=== PATIENT | female | born 1945 | race Caucasian/White ===

== ENCOUNTER 2019-08-29 20:24 | Inpatient (IN) | payer MEDICARE, SELFPAY ==
--- NOTE | ~2019-08-29 | XR_ITS ---
EXAMINATION: XR chest 1V portable DATE: 08/30/2019 09:25 INDICATION: Altered mental status. TECHNIQUE: A single frontal view of the chest was obtained. COMPARISON: Chest 2 views 06/14/2017 FINDINGS: The chest demonstrates clear lungs without pneumonia, pleural effusion, or pneumothorax. Th e heart size is normal. Skinfolds overlie the chest bilaterally. Surgical clips overlie the abdomen. There are changes of anterior and posterior fusion procedures in cervicothoracic spine. IMPRESSION: 1. No acute cardiopulmonary disease. Reviewed, dictated and finalized at location A.
--- NOTE | ~2019-08-29 | MR_ITS ---
EXAMINATION: MR brain/brain stem wo/w con DATE: 08/30/2019 14:02 INDICATION: Altered mental status. TECHNIQUE: Magnetic resonance imaging (MRI) of the brain and brainstem was performed without and with 7 mL MultiHance intravenous contrast. Sequences included sagittal and axial T1-weighted FSE, axial d iffusion-weighted FS EPI, axial T2*-weighted GRE, axial T2-weighted FLAIR Propeller, and axial T2-lynn ghted Propeller. Postcontrast sequences included axial and coronal T1-weighted FSE. Apparent diffusio n coefficient (ADC) maps were created. COMPARISON: Head CT 08/29/2019 FINDINGS: There are scattered areas of nonspecific increased T2-weighted signal intensity in the cere bral white matter and jesus. There is an old infarct involving the right basal ganglia and internal ca psule. There is a small old infarct in right cerebellum. There is no intracranial hemorrhage, acute i nfarction, or abnormal intracranial mass lesion. There is ex vacuo dilatation of body of right latera l ventricle. There are likely changes of ocular lens replacement surgeries. The paranasal sinuses are clear. The mastoid air cells are normal. IMPRESSION: 1. 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 2. Moderate nonspecific cerebral white matter disease and pontine disease, which likely represents ch ronic small vessel ischemic disease. Reviewed, dictated and finalized at location A. IMPRESSION: 1. 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 2. Moderate nonspecific cerebral white matter disease and pontine disease, whic h likely represents chronic small vessel ischemic disease.
--- NOTE | ~2019-08-29 | CT_ITS ---
EXAMINATION: CTA brain carotid DATE: 08/29/2019 23:07 INDICATION: Acute onset of confusion and altered mental status TECHNIQUE: Computed tomographic angiography (CTA) of the head was performed without and with 100 mL O mnipaque-350 intravenous contrast. CTA of the neck was performed with intravenous contrast. The dose- length product was 1641.08 mGy-cm. Maximum intensity projection and volume rendered 3D-reconstruction s were created by the technologist on a separate workstation. Automated exposure control and iterativ e reconstruction technique were employed. COMPARISON: None. FINDINGS: HEAD CTA: There is no acute intraparenchymal hemorrhage. No evidence of mass lesion. No evidence of a cute infarction. There are areas of prior lacunar infarction in the right caudate and internal capsul e and the right cerebellum. There is mild periventricular and subcortical hypodensity probably relate d to small vessel ischemic disease. There is mild prominence of the sulci and ventricles related to c erebral atrophy. Intracranial calcified cerebral atherosclerosis is noted. There are no extra-axial c ollections. There is no mass effect or midline shift. Changes in the globes are likely from ocular le ns surgery. The visualized sinuses and mastoid air cells are well aerated. There is no significant stenosis of the basilar artery or posterior cerebral arteries. There is no si gnificant stenosis of the intracranial internal carotid arteries or the anterior or middle cerebral a rteries. The anterior communicating artery and posterior communicating arteries are normal. There is no aneurysm. NECK CTA: The thyroid gland is unremarkable. The submandibular and parotid glands are symmetric. Ther e is no lymphadenopathy. There are no masses identified. The airway is unremarkable. There are change s of anterior and posterior fusion from C3 through T1. The superior mediastinum is unremarkable. Ther e is moderate emphysema of the visualized lung apices. There is 44% stenosis of the proximal right internal carotid artery relative to normal distal artery lumen diameter (NASCET criteria). There is 11% stenosis of the proximal left internal carotid artery relative to normal distal artery lumen diameter. IMPRESSION: 1. Areas of prior infarction without acute intracranial abnormality. Normal head CTA. 2. 44% stenosis of the proximal right internal carotid artery relative to normal distal artery lumen diameter (NASCET criteria). 3. 11% stenosis of the proximal left internal carotid artery relative to normal distal artery lumen d iameter. 4. Moderate emphysema. Reviewed, dictated and finalized at location A. IMPRESSION: 1. Areas of prior infarction without acute intracranial abnormality. Normal hea d CTA. 2. 44% stenosis of the proximal right internal carotid artery relative to viral l distal artery lumen diameter (NASCET criteria). 3. 11% stenosis of the proximal left internal carotid artery relative to normal distal artery lumen diameter. 4. Moderate emphysema.
[2019-08-29 20:24] VITALS: BP 196/131; PULSE 109; RESP 18; TEMP 36.9; O2SAT 99
--- NOTE | 2019-08-29 20:28 | ECG_ITS ---
Measurements Intervals [place] Rate: 105 P: 81 CT: 140 QRS: 64 QRSD: 78 T: 75 QT: 330 QTc: 437 Interpretive Statements SINUS TACHYCARDIA RIGHT ATRIAL ENLARGEMENT POSSIBLE LEFT ATRIAL ENLARGEMENT BORDERLINE R WAVE PROGRESSION, ANTERIOR LEADS MINIMAL Q WAVES- INFERIOR LEADS BASELINE ARTIFACT- II, III, AVR, AVL, AVF, V4-V6 ABNORMAL ECG Electronically Signed On 08-30-2019 7:34:15 CDT by Cheng Nazario D.O.
--- NOTE | 2019-08-29 20:34 | ED.GENADULT ---
HPI - General Adult General Chief complaint: Altered Mental Status Stated complaint: ams Time Seen by Provider: 08/29/19 20:25 History of Present Illness HPI narrative: Patient is 74 y/o brought in by EMS for altered mental status. states that she started to talk confused starting 2 hours ago. She keeps repeating the same thing again and again. He states that one time he asked her what she would like for dinner and she asked him why he wanted her to lay down. There is no alleviating or exacerbating factor. She is able to move all 4 extremities. She is on Oxycodone for chronic back pain. states that she gets agitated when she runs out of Oxycodone. Related Data Home Medications Medication Instructions Recorded Confirmed amitriptyline 50 mg PO HS 08/29/19 08/30/19 furosemide 40 mg PO DAILY 08/29/19 08/30/19 oxycodone [OxyContin] 40 mg PO HS 08/29/19 08/30/19 oxycodone [OxyContin] 80 mg PO TID PRN 08/29/19 08/30/19 potassium chloride 10 meq PO DAILY 08/29/19 08/30/19 fluticasone furoate-vilanterol 1 inh INHALATION DAILY 08/30/19 08/30/19 [Breo Ellipta] lisinopril 40 mg PO DAILY 08/30/19 08/30/19 trazodone 50 mg PO HS 08/30/19 08/30/19 Allergies Allergy/AdvReac Type Severity Reaction Status Date / Time codeine Allergy Intermediate Rash Verified 08/29/19 22:13 CODEINE (Generic Allergy) Allergy Unknown Y Uncoded 01/07/17 00:00 CODIENE Allergy Unknown Rash Uncoded 08/29/19 22:13 NKFA Allergy Unknown Rash Uncoded 08/29/19 22:13 Review of Systems Review of Systems: ROS unobtainable: Yes unobtainable due to mental status PMFSH Past Medical History Medical History (Updated 09/01/19 @ 08:56 by Nella Hightower MD) Arthritis Chronic narcotic use COPD (chronic obstructive pulmonary disease) Diverticulosis Essential hypertension, benign History of peptic ulcer Tobacco abuse Surgical History Surgical History (Updated 08/30/19 @ 08:25 by Fabian Sun MD) Hx of dilation and curettage 2002 Hx of spinal surgery 2 cervical (front) and 1 cervical posterior 2 lumbar surgeries S/P appy 1956 S/P cholecystectomy 1971 Family History Family History (Updated 08/30/19 @ 06:48 by Fabian Sun MD) Other Lung cancer Social History Social History (Updated 08/30/19 @ 08:24 by Fabian Sun MD) Social History: Home with . Worked at [employer]. Hx of tobacco use. Full code. Smokes 3-4 cig/day. No alcohol. would be making medical decision for her if she is not able. Smoking packs per day: 0.25 Smoking cigarettes per day: 5.0 Years smoked: 10 Smoking pack-years: 2.50 Smoking status: Current every day smoker Tobacco type: cigarettes Alcohol intake: never Substance use: never Gender identity (if verbalized by the patient): Female Sexual Orientation (if Verbalized by the Patient): Straight or Heterosexual Spiritual care concerns: No Exam Const: General: no acute distress and well developed Orientation/consciousness: oriented to person HENMT: Head: normocephalic Ears: external ears normal General nose exam: Normal external nose present Eyes: General: appearance normal, both eyes and all related structures Conjunctivae: conjunctivae normal Neck: Neck: normal visual inspection and full ROM Chest: Chest palpation & inspection: normal inspection of the chest and no tenderness Resp: Effort & Inspection: normal respiratory effort Auscultation: clear to auscultation bilaterally Cardio: Rate: regular rate Rhythm: regular rhythm GI: GI Palp: No abdominal tenderness and Yes Soft to palpation Skin: General skin exam: normal color and turgor normal Neuro: General: oriented to person, moves all extremities, confusion and other (does not answer questions appropriately, has spontaneous movement all 4 ext) Cognition (Neuro): abnormal cognition Speech: normal speech Motor exam (neuro): 5/5 motor strength present throughout and Other motor obs
--- NOTE | 2019-08-29 20:45 | PC.NURSE ---
RN at bedside x 4 Pt is pulling all leads off, and ripping iv out. Pt given ativan 2mg per dr ireland verbal order. pt still restless. RN cath successful.
[2019-08-29 21:00] LABS: Basophils Absolute Auto 0.1 K/mm3 (0.0-0.1); Basophils Percent Auto 0.7 % (0.2-1.2); Eosinophils Percent Auto 0.2 % (0-4.4); Hematocrit 46.9 % (37.0-47.0); Immature Granulocyte Absolute 0.03 K/mm3 (0.00-0.031); Immature Granulocyte Percent A 0.3 % (0-0.5); Lymphocytes Absolute Auto 2.14 K/mm3 (0.9-3.2); Lymphocytes Percent Auto 21.8 % (18.3-44.2); Mean Corpuscular HGB Conc 34.1 g/dl (32-36); Mean Corpuscular Hemoglobin 32.9 pg (26-34); Mean Corpuscular Volume 96.3 fl (80-100); Mean Platelet Volume 9.5 fl (7.4-10.4); Monocytes Absolute Auto 0.8 K/mm3 (0.1-0.6); Monocytes Percent Auto 7.6 % (2.6-8.5); Neutrophils Absolute Auto 6.8 K/mm3 (1.3-6.7); Neutrophils Percent Auto 69.4 % (45.5-73.1); Platelet Count Result 383 k/mm3 (150-375); Red Blood Count 4.87 M/mm3 (4.2-5.4); Red Cell Distribution Width 13.1 % (11.5-14.5); White Blood Count 9.8 K/mm3 (4.5-10.0)
[2019-08-29 21:04] LABS: Add Urine Microscopic? YES; Appearance Urine Clear (Clear); Bacteria Urine Trace /hpf; Bilirubin Urine Negative (Negative); Blood Urine 2+ (Negative); Color Urine Yellow (Yellow); Glucose Urine UA Negative (Negative); Ketones Urine 1+ mg/dL (Negative); Leukocyte Esterase Ur Trace LEU/UL (Negative); Mucus Urine Rare /lpf; Nitrate Urine Negative (Negative); Protein Urine 2+ mg/dL (Negative); RBC Urine 51-75 /hpf (0-2); Specific Grav Ur 1.017 (1.001-1.035); Squamous Epithelial Cell Urine Few /hpf (Few); WBC Urine 0-3 /hpf
[2019-08-29 21:12] LABS: Alanine Aminotransferase 17 U/L (4-35); Albumin Level 4.8 g/dL (3.5-5.1); Alkaline Phosphatase 69 U/L (38-126); Aspartate Amino Transferase 28 U/L (14-36); Blood Urea Nitrogen 17 mg/dL (7-17); Carbon Dioxide 22 mmol/L (22-30); Chloride 105 mmol/L (98-107); Estimated Glomerular Filt Rate > 60; Glucose 117 mg/dL (65-105); Sodium 140 mmol/L (137-145)
[2019-08-29 22:03] VITALS: BP 236/199; PULSE 97; RESP 18; O2SAT 98
--- NOTE | 2019-08-29 22:17 | PC.NURSE ---
ERP Dr. Hightower notified that patient is extremely restless, pulling at leads, attempting to rip iv out, and roll out of bed. MD also aware of pt bp being elevated to 200's / 200's.
--- NOTE | 2019-08-29 22:20 | PC.NURSE ---
RN spoke with CT, CT still unable to get pt into ct at this time d/t pt restlessness.
[2019-08-29] MEDS: HALOPERIDOL LACTATE 5 MG/ML VIAL IM (22:23)
[2019-08-29] MEDS: LABETALOL HCL INJ 100 MG/20 ML VIAL 20 MG IV PUSH (22:23)
[2019-08-29 22:34] VITALS: BP 159/132; PULSE 67; RESP 26; O2SAT 98
--- NOTE | 2019-08-29 23:10 | PC.NURSE ---
RN updated son Ken. Please contact him with any factual information [phone]. Son stated step father aka spouse to pt has alzheimers/dementia and is not able to communicate everything we are telling him.
--- NOTE | 2019-08-29 23:11 | PC.NURSE ---
RN report given to Courtney.
[2019-08-29 23:48] VITALS: BP 140/66; PULSE 68; RESP 10; O2SAT 98
[2019-08-29 23:51] LABS: Barbiturate Screen Urine Negative (Negative); Benzodiazepines Screen Urine Negative (Negative)
[2019-08-29 23:57] LABS: Amphetamine Screen Urine Negative (Negative); Cannabinoid Screen Urine Negative (Negative); Cocaine Screen Urine Negative (Negative); Methadone Screen Urine Negative (Negative); Opiate Screen Urine Positive (Negative); Phencyclidine Screen Urine Negative (Negative)
[2019-08-30] VITALS (8 sets, daily range): BP systolic 119–193; BP diastolic 67–91; PULSE 81–112; RESP 14–20; TEMP 36.2–37.2; O2SAT 90–100; BMI 16.8
--- NOTE | 2019-08-30 | ECHO_ITS ---
Patient Info Name: Etienne Cabrera Age: 74 years : 1945 Gender: Female Ht: 58 in Wt: 77 lbs BSA: 1.19 m2 HR: 98 bpm BP: 182 / 93 mmHg Heart Rhythm: Sinus Rhythm Technical Quality: Fair Exam Date: 08/30/2019 4:04 PM Exam Location: [facility] Pulmonary Exam Room: [facility] Patient Status: Inpatient Admit Date: 08/30/2019 Staff Ordering Physician: Fabian Sun MD Quality Assurance Nurse: Ellen Pedraza RDCS Attending Provider: Fabian Sun MD Exam Type: CA echo doppler w bubble study Study Info Indications - tia cva Complete two-dimensional, color flow and Doppler transthoracic echocardiogram is performed with agitated saline. Contrast/Agitated Saline Amount: --- ml Existing IV Access: Yes Contrast/Ag. Saline: Agitated Saline Amount: --- ml Administered By: Shlomo Londono RN Summary 1. Left ventricular chamber dimension is normal. 2. Left ventricular systolic function is normal, estimated at >70%. 3. There is no increased left ventricular wall thickness. 4. The left ventricular diastolic function is grade I diastolic dysfunction. 5. Suspected patent foramen ovale visualized by agitated saline imaging. 6. There is mild tricuspid valve regurgitation. 7. Cannot rule out aortic valve vegetation visualized. 8. The aortic valve leaflets are thickened especially involving the left and non coronary cusps. 9. Consider ELAINA if clinically indicated. Recommendations * Consider ELAINA if clinically indicated. Left Ventricle Left ventricular chamber dimension is normal. Left ventricular systolic function is normal, estimated at >70%. There is no increased left ventricular wall thickness. The left ventricular diastolic function is grade I diastolic dysfunction. Right Ventricle Right ventricular chamber dimension is normal. Right ventricular systolic function is normal. Left Atria Left atrial chamber dimension is normal. Right Atria Right atrial chamber dimension is normal. Atrial Septum Suspected patent foramen ovale visualized by agitated saline imaging. Aortic Valve The aortic valve is trileaflet. There is mild aortic valve sclerosis. There is no aortic valve stenosis. Cannot rule out aortic valve vegetation visualized. The aortic valve leaflets are thickened especially involving the left and non coronary cusps. Pulmonic Valve The pulmonic valve is normal. There is no pulmonic valve stenosis. There is trace pulmonic regurgitation. Mitral Valve The mitral valve has thickened leaflets. There is no mitral valve stenosis. There is trace mitral valve regurgitation. Tricuspid Valve The tricuspid valve leaflets are normal. There is no significant tricuspid valve stenosis. There is mild tricuspid valve regurgitation. No pulmonary hypertension, estimated pulmonary arterial systolic pressure is 32 mmHg. Pericardium/Pleural The pericardium appears normal. Inferior Vena Cava Normal inferior vena cava with >50% collapse upon inspiration consistent with normal right atrial pressure, 10 mmHg. Aorta The aortic root size at the sinus of Valsalva is normal. Left Ventricular Outflow Tract Name Value Normal LVOT 2D
--- NOTE | 2019-08-30 06:42 | PM.IMHP ---
H&P: HPI History of Present Illness Chief complaint: altered mental status Narrative: Etienne Cabrera is a 74 year old female here for altered mental status. Symptoms began last evening. Patient was noted by her to be repeating the same thing over and over again. On my history taking today, patient answers questions by saying 'yes', 'no', or 'thank you' without clear distinction. as such history is unreliable. Discussed with . He states patient would say 'I don't know what you mean'. Similar event in June that lasted 3-4 hours but symptoms resolved. No hx of taking her medication inappropriately except she takes her OxyContin more than she should. She ran out of her OxyContin medication a few days ago. Because of the mental status change, EMS was called and brought ot the ER. In the ER, patient had BP as high as 236/199. She was treated with Labteolol, Haldol and Ativan. RN notes state patient extremely restless attempting to rip out IV and roll out of bed. Head/Neck CTA showing areas of prior infarcts but no acute findings. No ASA given. Patient admitted for further care. Per , patient without recent symptoms specifically no chest pain, SOB, urinary symptoms, n/v, rash. No COVID exposure. Chronic cough but no change. Review of Systems Review of Systems: ROS unobtainable: Yes unobtainable due to mental status PMFSH Past Medical History Medical History (Updated 08/31/19 @ 12:02 by Jimmie Lamb MD) Arthritis Chronic narcotic use COPD (chronic obstructive pulmonary disease) Diverticulosis Essential hypertension, benign History of peptic ulcer Tobacco abuse Surgical History Surgical History (Updated 08/30/19 @ 08:25 by Fabian Sun MD) Hx of dilation and curettage 2001 Hx of spinal surgery 2 cervical (front) and 1 cervical posterior 2 lumbar surgeries S/P appy 1955 S/P cholecystectomy 1970 Family History Family History (Updated 08/30/19 @ 06:48 by Fabian Sun MD) Other Lung cancer Social History Social History (Updated 08/30/19 @ 08:24 by Fabian Sun MD) Social History: Home with . Worked at [employer]. Hx of tobacco use. Full code. Smokes 3-4 cig/day. No alcohol. would be making medical decision for her if she is not able. Smoking packs per day: 0.25 Smoking cigarettes per day: 5.0 Years smoked: 10 Smoking pack-years: 2.50 Smoking status: Current every day smoker Tobacco type: cigarettes Alcohol intake: never Substance use: never Gender identity (if verbalized by the patient): Female Sexual Orientation (if Verbalized by the Patient): Straight or Heterosexual Spiritual care concerns: No Meds Home Medications and Allergies Home Medications Medication Instructions Recorded Confirmed Type amitriptyline 50 mg PO HS 08/29/19 08/30/19 History furosemide 40 mg PO DAILY 08/29/19 08/30/19 History oxycodone [OxyContin] 40 mg PO HS 08/29/19 08/30/19 History oxycodone [OxyContin] 80 mg PO TID PRN 08/29/19 08/30/19 History potassium chloride 10 meq PO DAILY 08/29/19 08/30/19 History fluticasone furoate-vilanterol 1 inh INHALATION DAILY 08/30/19 08/30/19 History [Breo Ellipta] lisinopril 40 mg PO DAILY 08/30/19 08/30/19 History trazodone 50 mg PO HS 08/30/19 08/30/19 History Allergies Allergy/AdvReac Type Severity Reaction Status Date / Time codeine Allergy Intermediate Rash Verified 08/29/19 22:13 CODEINE (Generic Allergy) Allergy Unknown Y Uncoded 01/07/17 00:00 CODIENE Allergy Unknown Rash Uncoded 08/29/19 22:13 NKFA Allergy Unknown Rash Uncoded 08/29/19 22:13 Vital Signs Vital Signs - 24 hr 08/29/19 20:24 08/29/19 22:03 08/29/19 22:34 Temperature 98.5 F Pulse Rate 109 H 97 67 Respiratory Rate 18 18 26 H Blood Pressure 196/131 H 236/199 H 159/132 H Pulse Oximetry 99 98 98 08/29/19 23:48 08/30/19 00:45 08/30/19 06:00 Temperature 97.1 F L 98.0 F Pulse Rate 68 81 86 Respiratory R
--- NOTE | 2019-08-30 08:29 | ADMGEN ---
This patient, Etienne Cabrera, was admitted to [facility] Surg Room 323-02. Patient/family oriented to hospital policies and general routines including ID bracelet, bed and alarms, visiting hours, pain management, procedures, bathroom and other care routines, personal items, smoking policy, room service/diet, and visiting hours. Valuables list has been completed. Information on how to activate the Rapid Response Team has been discussed. Patient/Family are encouraged to report perceived risks to care and to ask questions if they do not understand what they are told or what they should do.
--- NOTE | 2019-08-30 11:18 | PCOTNOTE ---
Unable to complete OT evaluation at this time due to increased patient confusion and inability to follow directions. Will attempt OT evaluation when patient is medically appropriate.
--- NOTE | 2019-08-30 11:28 | PCPTNOTE ---
Unable to complete PT evaluation at this time due to increased patient confusion and inability to follow directions. Will attempt PT evaluation when patient is medically appropriate.
--- NOTE | 2019-08-30 12:00 | PCWOUND ---
WOCN NOTE Patient trying to get out of bed, confused. bed has 4 rails up and pt trying to climb over them. wound RN in room for pt in bed 1. Pt out of bed six times in fifteen minutes, wound RN put pt back to bed each time, then let RN and charge preparation technician know. MICROBIOLOGY TECHNICIAN in room when wound RN left.
--- NOTE | 2019-08-30 14:36 | PCSTNOTE ---
Please refer to the Bedside Swallow Evaluation in the EMR. Please note, silent aspiration cannot be ruled out at bedside.
[2019-08-30] MEDS: ASPIRIN 81 MG CHEWABLE TABLET PO (17:46)
[2019-08-30] MEDS: AMITRIPTYLINE HCL 25 MG TABLET 50 MG PO (20:54)
[2019-08-30] MEDS: traZODone HCL 50 MG TABLET PO (20:54)
--- NOTE | 2019-08-30 21:53 | CONS_ITS ---
DATE OF CONSULTATION: Patient of Dr. Maciel Sun. HISTORY OF PRESENT ILLNESS: This 74-year-old lady has been admitted to the hospital for the complaint of change in the mental status since the evening before which was noted by her as she was repeating the same thing over and over again and was answering by saying yes or no or thank you without any clear distinction. She had the same episode in June of this year, which lasted for several hours, but subsequently symptomatology resolved. There is no history of taking her medications inappropriately except she takes OxyContin more than she should. She ran out of her medication a few days ago. Because of change in the mental status, EMS was called to the scene. In the emergency room, she was noted to have blood pressure of 236/199. She was treated with labetalol, Haldol, and Ativan. She did not receive any aspirin in the emergency room. PAST MEDICAL HISTORY: She has ongoing history of 1. Chronic narcotic use. 2. COPD. 3. Diverticulosis. 4. Essential hypertension. 5. Peptic ulcer. 6. Tobacco abuse. PAST SURGICAL HISTORY: She has undergone 2 cervical front and 1 cervical posterior fusion along with 2 lumbar surgeries attributing to her chronic use of pain medication. She has also been status post appendectomy and cholecystectomy. SOCIAL HISTORY: She is a never drinker. Never smoker. MEDICATIONS: At the time of admission included the amitriptyline, aspirin, fluticasone nasal spray, furosemide, lisinopril, oxycodone, and potassium chloride in addition to albuterol sulfate. ALLERGIES: SHE IS REPORTEDLY ALLERGIC TO CODEINE. PHYSICAL EXAMINATION: VITAL SIGNS: Evaluation up until now documented her to be afebrile with pulse of 109, respirations 18, blood pressure 196/131, pulse ox 99%. GENERAL: She is awake, alert, cooperative, in no obvious acute distress. HEENT: Head normocephalic, no cranial bruit. Ears, nose, throat examination normal. NECK: Supple with no cervical bruit. No thyromegaly. No lymphadenopathy. HEART: Regular with no murmur. LUNGS: Clear to auscultation and percussion. ABDOMEN: Soft with normal bowel sounds. EXTREMITIES: Normal. NEUROLOGICAL: She is awake, alert, cooperative, followed the instructions fairly well. Pupils round, regular. Taveras of vision full. Extraocular movements full. Face symmetrical. Tongue midline. Motor examination revealed her to have symmetrical on the weaker side, but reflexes are symmetrical. Plantars are downgoing. There is no evidence of gross cerebellar deficit. LABORATORY DATA: Evaluation up until now included the CBC without leukocytosis, hemoglobin 16, platelet count 383. Normal basic metabolic panel, normal hepatic enzyme, normal UA with 2+ protein. IMAGING DATA: Old infarct involving the right basal ganglia, right internal capsule and right cerebellum on the MRI with moderate nonspecific white matter disease. Negative chest x-ray and normal CTA with no significant stenosis. At this stage, she is receiving aspirin 81 mg daily, amitriptyline 50 mg daily, trazodone 50 at night, lisinopril 40 mg daily. Considering the possibility of the change in mental status relating to the medication use, treatment will continue as such. Further adjustment will be made accordingly. KYUNG HERNÁNDEZ M.D. PUBLIC POLICY MEDIATOR PUBLIC POLICY MEDIATOR D I MT: Cassy JOSE
[2019-08-31 06:00] VITALS: BP 122/64; PULSE 77; RESP 18; TEMP 36.3; O2SAT 99
[2019-08-31 06:32] LABS: Hematocrit 43.6 % (37.0-47.0); Hemoglobin 14.9 g/dL (12.0-15.0); Mean Corpuscular HGB Conc 34.2 g/dl (32-36); Mean Corpuscular Hemoglobin 32.3 pg (26-34); Mean Corpuscular Volume 94.6 fl (80-100); Mean Platelet Volume 9.1 fl (7.4-10.4); Platelet Count Result 323 k/mm3 (150-375); Red Blood Count 4.61 M/mm3 (4.2-5.4); Red Cell Distribution Width 12.8 % (11.5-14.5); White Blood Count 12.4 K/mm3 (4.5-10.0)
[2019-08-31 06:50] LABS: Anion Gap 13.9 mmol/L (7-16); Blood Urea Nitrogen 23 mg/dL (7-17); Calcium 9.3 mg/dL (8.4-10.2); Carbon Dioxide 24 mmol/L (22-30); Chloride 104 mmol/L (98-107); Estimated Glomerular Filt Rate > 60; Glucose 104 mg/dL (65-105); Potassium 2.9 mmol/L (3.4-5.0); Sodium 139 mmol/L (137-145)
[2019-08-31 07:59] LABS: Folic Acid > 20.0 ng/mL (2.76->20)
[2019-08-31] MEDS: POTASSIUM CHLORIDE 20 MEQ TABLET 40 MEQ PO ×2 (10:07→15:15)
[2019-08-31] MEDS: lisinopriL 20 MG TABLET 40 MG PO (10:08)
--- NOTE | 2019-08-31 11:52 | WPDNEUROPN ---
Progress Note: A&P Assessment and Plan (1) Tobacco abuse: Code(s): Z72.0 - Tobacco use Status: Acute (2) COPD (chronic obstructive pulmonary disease): Code(s): J44.9 - Chronic obstructive pulmonary disease, unspecified Status: Acute (3) Essential hypertension, benign: Code(s): I10 - Essential (primary) hypertension Status: Acute (4) Chronic narcotic use: Code(s): F11.90 - Opioid use, unspecified, uncomplicated Status: Acute (5) Altered mental status: Code(s): R41.82 - Altered mental status, unspecified Status: Acute (6) Arthritis: Code(s): M19.90 - Unspecified osteoarthritis, unspecified site Status: Acute Additional Plan stable Review of Systems Review of Systems: All systems reviewed & are unremarkable except as noted in HPI and below Exam Const: General: cooperative, no acute distress, alert and awake Nutritional Appearance: thin Orientation/consciousness: oriented to person Eyes: General: appearance normal, both eyes and all related structures Alignment and Position: alignment normal Periorbital: periorbital findings normal Eyelids: eyelids normal Conjunctivae: conjunctivae normal Sclera: sclerae normal Cornea: corneas normal Pupils: Equal, round and reactive pupils present EOM: EOMs intact bilaterally Neck: Neck: full ROM and no lymphadenopathy Thyroid: thyroid normal Carotids: normal carotid upstroke Lymphatic: no lymphadenopathy noted Resp: Effort & Inspection: able to speak in complete sentences Cardio: Rate: regular rate Rhythm: regular rhythm Skin: General skin exam: erythema Other: IPJ abnormal Neuro: General: oriented to person, oriented to place, tone normal, moves all extremities and no focal motor deficits Cranial nerves: Yes CN's II-XII intact bilaterally, Yes Equal, round and reactive pupils present, Yes Nystagmus not present, Yes Midline tongue present, Yes Normal hearing present and Yes Ability to bilaterally elevate shoulders present Speech: normal speech Gait exam (Neuro): Normal gait present Motor exam (neuro): Abnormal motor strength present Sensory Exam: Sensory deficit (Neuro) Deep tendon reflexes (DTR's): Right triceps reflex intensity grade: 1+, Left triceps reflex intensity grade: 1+, Rt Biceps (C5, C6): 1+, Left biceps reflex intensity grade: 1+, Right brachioradialis reflex intensity grade: 1+, Left brachioradialis reflex intensity grade: 1+, Right patellar reflex intensity grade: 1+, Left patellar reflex intensity grade: 1+, Right ankle reflex intensity grade: 1+ and Left ankle reflex intensity grade: 1+ Plantar Reflex Responses: downgoing: bilateral Extrem: General: other Psych: Affect: normal affect Attitude: cooperative Thought content: Yes Normal thought content present Insight: Fair insight present (Psych) Judgement: Fair judgement present (Psych) Objective Data Vital Signs Vital Signs: Vital Signs - 24 hr 08/30/19 12:00 08/30/19 14:00 08/30/19 18:00 Temperature 36.9 C 36.7 C Pulse Rate 83 112 H 103 H Respiratory Rate 14 18 Blood Pressure 177/72 H 193/90 H Pulse Oximetry 95 94 08/30/19 22:00 08/31/19 06:00 Temperature 37.2 C 36.3 C L Pulse Rate 105 H 77 Respiratory Rate 18 18 Blood Pressure 178/88 H 122/64 Pulse Oximetry 100 99 Intake/Output Intake/Output: Intake & Output 08/28/19 08/29/19 08/30/19 08/31/19 23:59 23:59 23:59 23:59 Intake Total 315 540 Output Total 20 Balance -20 315 540 Meds/Results Medications: Active Medications Generic Name Dose Route Start Last Admin Trade Name Vishalq PRN Reason Stop Dose Admin Amitriptyline HCl 50 mg 08/30/19 21:00 08/30/19 20:54 Elavil PO 50 mg HS LUKE Administration Aspirin 81 mg 08/30/19 08:50 08/30/19 17:46 Aspirin Chewable PO 81 mg DAILY@0800 LUKE Administration Lisinopril 40 mg 08/31/19 09:00 08/31/19 10:08 Prinivil PO 40 mg DAILY ULKE Administration Lorazepam 0.5
[2019-08-31 12:39] LABS: Magnesium 2.1 mg/dL (1.6-2.3); Phosphorus 2.3 mg/dL (2.5-4.5); Potassium 3.3 mmol/L (3.4-5.0)
--- NOTE | 2019-08-31 13:11 | PM.IMPN ---
Progress Note: A&P Assessment and Plan (1) Altered mental status: Code(s): R41.82 - Altered mental status, unspecified Status: Acute Assessment and Plan: Etiology concerning for CVA but more likely related to narcotic withdrawal. Patient does have a history of CVA and continues to smoke. No evidence of infection. CXR clear. MRI showing old infarcts involving the right basal ganglia, right internal capsule, and right cerebellum. Echocardiogram showng EF 70%, Grade I DD, possible patent foramen ovale. Continue PT/OT/ST. Advance diet when okay with speech. Since no acute CVA, will hold on ELAINA. Continue ASA. Consider ELAINA as outpatient. Check lipid panel. (2) Chronic narcotic use: Code(s): F11.90 - Opioid use, unspecified, uncomplicated Status: Acute Assessment and Plan: Patient has been out of her narcotics for a few days now. It appears she takes this more than prescribed per . We have resumed her scheduled OxyContin at the home dose listed. Mental status has improved and no findings to suggest CVA. Suspect symptoms related to narcotic withdrawal. This was discussed with patient about the need to ensure that she takes her medication appropriately so she does not run out at times. (3) Essential hypertension, benign: Code(s): I10 - Essential (primary) hypertension Status: Acute Assessment and Plan: BP markedly elevated on admission to 236/199. Possibly related to her not taking her medicatins. Home lisinopril resumed since no CVA by MRI. BP better controlled this morning. (4) COPD (chronic obstructive pulmonary disease): Code(s): J44.9 - Chronic obstructive pulmonary disease, unspecified Status: Acute Assessment and Plan: Stable. Continue Breo. (5) Tobacco abuse: Code(s): Z72.0 - Tobacco use Status: Acute Assessment and Plan: patient educated about the benefits of smoking cessation. Subjective Date/time seen: 08/31/19 13:11 Interval history: 74yo female here for altered mental status. Patient more awake and alert. She has been up walking in the halls. She denies nausea or vomiting. Slept well last night. She denies any chest pain or abdominal pain. She does have chronic low back. Exam Narrative: Exam Narrative: AF 97.3 122/64 77 18 99% ra Gen - NARD sitting up in chair feeding herself breakfast Chest - Prolonged expiratory phase with few end expiratory rhonchi. CV - RRR S1/S2 Abd - Soft, NT/ND, Positive BS Ext - No pedal edema. Neuro - speech is clear. Oriented x4 except did not know the name of the hospital. No focal weakness on limited exam Psych - normal mood and affect Skin - Small dry abrasions bilateral knees Objective Data Vital Signs Vital Signs: Vital Signs - 24 hr 08/30/19 14:00 08/30/19 18:00 08/30/19 22:00 Temperature 98.5 F 98.1 F 98.9 F Pulse Rate 112 H 103 H 105 H Respiratory Rate 14 18 18 Blood Pressure 177/72 H 193/90 H 178/88 H Pulse Oximetry 95 94 100 08/31/19 06:00 Temperature 97.3 F L Pulse Rate 77 Respiratory Rate 18 Blood Pressure 122/64 Pulse Oximetry 99 Intake/Output Intake/Output: Intake & Output 08/28/19 08/29/19 08/30/19 08/31/19 23:59 23:59 23:59 23:59 Intake Total 315 540 Output Total 20 Balance -20 315 540 Meds/Results Medications: Active Medications Generic Name Dose Route Start Last Admin Trade Name Freq PRN Reason Stop Dose Admin Amitriptyline HCl 50 mg 08/30/19 21:00 08/30/19 20:54 Elavil PO 50 mg HS LUKE Administration Aspirin 81 mg 08/30/19 08:50 08/30/19 17:46 Aspirin Chewable PO 81 mg DAILY@0800 LUKE Administration Lisinopril 40 mg 08/31/19 09:00 08/31/19 10:08 Prinivil PO 40 mg DAILY LUKE Administration Lorazepam 0.5 mg 08/30/19 11:42 08/30/19 21:00 Ativan Inj IV PUSH 0.5 mg Q6H PRN Administration Anxiety/agitation Non-Formulary Medicat
[2019-08-31] MEDS: ASPIRIN 81 MG CHEWABLE TABLET PO (13:46)
[2019-08-31 14:00] VITALS: BP 130/84; PULSE 99; RESP 18; TEMP 36.6; O2SAT 94
[2019-08-31] MEDS: POTASSIUM/PHOSPHORUS/SODIUM 1.5 GM PACKET 1 PACKET PO (15:15)
--- NOTE | 2019-08-31 17:10 | PCDIET ---
Nutrition Follow-Up Complete: Inadequate oral intake related to altered mental status as evidenced by NPO diet, BMI 16.8. Patient to consume 75% of meals/supplements or greater. Goal: Progressing towards goal. Continue current goal. Pt current nutrition is soft and bite sized level 6. Nutrition recommendation: agree Last recorded weight is 35.3 kg (recommend daily weights) Bowel Motility: Labs Reviewed:WBC 12.4, K 2.9, PO4 2.3 Meds Noted: Additional Notes: Pt here for potential narcotic withdrawal after running out of meds. Intake has ranged from 30-75%. Pt did not like pureed diet and now diet has been advanced. Pt state she is typically 120lbs, now 77.66lbs. Signs of malnutrition include continued wt loss, temporal wasting. Pt offered ensure compact BID along with diet. She drinks boost at home. Pt encouraged to continue boost daily as well as add snacks b/w meals to aid in wt gain. We will continue to monitor every five days.
[2019-08-31] MEDS: AMITRIPTYLINE HCL 25 MG TABLET 50 MG PO (21:30)
[2019-08-31] MEDS: traZODone HCL 50 MG TABLET PO (21:31)
[2019-08-31 22:00] VITALS: BP 106/65; PULSE 104; RESP 18; TEMP 36.9; O2SAT 100
[2019-09-01 06:00] VITALS: BP 104/57; PULSE 73; RESP 16; TEMP 36.5; O2SAT 97
[2019-09-01 06:30] LABS: Basophils Absolute Auto 0.1 K/mm3 (0.0-0.1); Basophils Percent Auto 0.8 % (0.2-1.2); Eosinophils Absolute Auto 0.3 K/mm3 (0-0.3); Eosinophils Percent Auto 2.1 % (0-4.4); Hematocrit 42.1 % (37.0-47.0); Hemoglobin 14.3 g/dL (12.0-15.0); Immature Granulocyte Absolute 0.04 K/mm3 (0.00-0.031); Immature Granulocyte Percent A 0.3 % (0-0.5); Lymphocytes Absolute Auto 4.34 K/mm3 (0.9-3.2); Lymphocytes Percent Auto 34.9 % (18.3-44.2); Mean Corpuscular Hemoglobin 32.5 pg (26-34); Mean Corpuscular Volume 95.7 fl (80-100); Mean Platelet Volume 9.3 fl (7.4-10.4); Monocytes Absolute Auto 1.1 K/mm3 (0.1-0.6); Monocytes Percent Auto 9.1 % (2.6-8.5); Neutrophils Absolute Auto 6.6 K/mm3 (1.3-6.7); Neutrophils Percent Auto 52.8 % (45.5-73.1); Platelet Count Result 282 k/mm3 (150-375); Red Cell Distribution Width 12.8 % (11.5-14.5); White Blood Count 12.4 K/mm3 (4.5-10.0)
[2019-09-01 06:57] LABS: Albumin Level 3.9 g/dL (3.5-5.1); Anion Gap 12.2 mmol/L (7-16); Blood Urea Nitrogen 39 mg/dL (7-17); Calcium 8.7 mg/dL (8.4-10.2); Carbon Dioxide 22 mmol/L (22-30); Chloride 102 mmol/L (98-107); Cholesterol 120 mg/dL (0-200); Estimated Glomerular Filt Rate 26; Glucose 98 mg/dL (65-105); HDL Direct 39 mg/dL; Phosphorus 3.4 mg/dL (2.5-4.5); Potassium 5.2 mmol/L (3.4-5.0); Sodium 131 mmol/L (137-145); Triglycerides 204 mg/dL (<150)
[2019-09-01 06:58] LABS: LDL Cholesterol Direct 63 mg/dL
[2019-09-01] MEDS: ASPIRIN 81 MG CHEWABLE TABLET PO (09:33)
--- NOTE | 2019-09-01 10:43 | PM.IMPN ---
Progress Note: A&P Assessment and Plan (1) MORRIS (acute kidney injury): Code(s): N17.9 - Acute kidney failure, unspecified Status: Acute Assessment and Plan: No evidence of urinary retention. Could be sudden drop in her BP with the addition of the Lisinopril (may not be taking this regularly). Will stop Lisinopril and start IV fluids. Lasix remains on hold. (2) Hyperkalemia: Code(s): E87.5 - Hyperkalemia Status: Acute Assessment and Plan: Potassium level elevated felt related to the MORRIS and recent potassium siupplements. Will start IV fluids and repeat labs later today. (3) Altered mental status: Qualifiers: Altered mental status type: unspecified Qualified Code(s): R41.82 - Altered mental status, unspecified Code(s): R41.82 - Altered mental status, unspecified Status: Acute Assessment and Plan: Etiology concerning for CVA but more likely related to narcotic withdrawal. Patient does have a history of CVA and continues to smoke. No evidence of infection. CXR clear. MRI showing old infarcts involving the right basal ganglia, right internal capsule, and right cerebellum. Echocardiogram showng EF 70%, Grade I DD, possible patent foramen ovale. Continue PT/OT/ST. Since no acute CVA, will hold on ELAINA. Continue ASA. Consider ELAINA as outpatient. Lipid panel noted. (4) Chronic narcotic use: Code(s): F11.90 - Opioid use, unspecified, uncomplicated Status: Acute Assessment and Plan: Patient has been out of her narcotics for a few days prior to onset of symptoms. It appears she takes this more than prescribed per . We have resumed her scheduled OxyContin at the home dose listed at night. Mental status has improved and no findings to suggest CVA. Suspect symptoms related to narcotic withdrawal. She has listed that she takes OxyContin 80mg TID prn but suspect this is inaccurate. Patient was informed about the need to ensure that she takes her medication appropriately so she does not run out at times. Continue to monitor. (5) Essential hypertension, benign: Code(s): I10 - Essential (primary) hypertension Status: Acute Assessment and Plan: BP markedly elevated on admission to 236/199. Possibly related to her not taking her medicatins. Home lisinopril resumed since no CVA by MRI. BP much better controlled this morning. This drop in her BP could be the cause of her worsening renal function. Lisinopril placed on hold. (6) COPD (chronic obstructive pulmonary disease): Code(s): J44.9 - Chronic obstructive pulmonary disease, unspecified Status: Acute Assessment and Plan: Stable. Continue Breo. (7) Tobacco abuse: Code(s): Z72.0 - Tobacco use Status: Acute Assessment and Plan: Patient educated about the benefits of smoking cessation. Subjective Date/time seen: 09/01/19 10:43 Interval history: 74yo female here for altered mental status. Patient voiding normally. She does complain of lower abdominal pain. She also having diarrhea. No nausea or vomiting. Exam Narrative: Exam Narrative: AF 97.7 104/57 73 16 97% Gen - NARD Lying almost flat in bed Chest - scattered expiratory rhonchi and wheeze. Normal respiratory rate CV - RRR S1/S2 Abd - soft. Nondistended. Positive bowel sounds. Mild lower abdominal tenderness. Bladder does not feel distended. Ext - No pedal edema. Psych - Alert and appropriate. Skin - Warm and dry Objective Data Vital Signs Vital Signs: Vital Signs - 24 hr 08/31/19 14:00 08/31/19 22:00 09/01/19 06:00 Temperature 97.8 F 98.5 F 97.7 F Pulse Rate 99 104 H 73 Respiratory Rate 18 18 16 Blood Pressure 130/84 106/65 104/57 L Pulse Oximetry 94 100 97 Intake/Output Intake/Output: Intake & Output 08/29/19 08/30/19 08/31/19 09/01/19 23:59 23:59 23:59 23:59 Intake Total 315 1620 200 Output Total 20
[2019-09-01] MEDS: SODIUM CHLORIDE 0.9% IV 1,000 ML 100 ML IV CONT ×2 (11:30→19:13)
[2019-09-01 13:57] LABS: Blood Urea Nitrogen 34 mg/dL (7-17); Calcium 8.8 mg/dL (8.4-10.2); Carbon Dioxide 25 mmol/L (22-30); Chloride 99 mmol/L (98-107); Estimated Glomerular Filt Rate 44; Glucose 82 mg/dL (65-105); Sodium 130 mmol/L (137-145)
[2019-09-01 14:00] VITALS: BP 120/75; PULSE 51; RESP 16; TEMP 36.6; O2SAT 91
[2019-09-01 14:08] VITALS: O2SAT 95
--- NOTE | 2019-09-01 14:53 | WPDNEUROPN ---
Progress Note: A&P Assessment and Plan (1) MORRIS (acute kidney injury): Code(s): N17.9 - Acute kidney failure, unspecified Status: Acute (2) Hyperkalemia: Code(s): E87.5 - Hyperkalemia Status: Acute (3) Hypertension: Qualifiers: Hypertension type: unspecified Qualified Code(s): I10 - Essential (primary) hypertension Code(s): I10 - Essential (primary) hypertension Status: Acute (4) Arthritis: Code(s): M19.90 - Unspecified osteoarthritis, unspecified site Status: Acute (5) Tobacco abuse: Code(s): Z72.0 - Tobacco use Status: Acute (6) COPD (chronic obstructive pulmonary disease): Code(s): J44.9 - Chronic obstructive pulmonary disease, unspecified Status: Acute (7) Essential hypertension, benign: Code(s): I10 - Essential (primary) hypertension Status: Acute (8) Chronic narcotic use: Code(s): F11.90 - Opioid use, unspecified, uncomplicated Status: Acute (9) Altered mental status: Qualifiers: Altered mental status type: unspecified Qualified Code(s): R41.82 - Altered mental status, unspecified Code(s): R41.82 - Altered mental status, unspecified Status: Acute Additional Plan patient is back to her baseline and I do not see any lateralizing deficit in fact she has improved significantly as per herself and her present of the time of the interview management as such by the hospitalist Review of Systems Review of Systems: All systems reviewed & are unremarkable except as noted in HPI and below Exam Const: General: comfortable and no acute distress HENMT: General nose exam: Normal nares present Mouth: Yes moist mucous membranes Eyes: General: appearance normal, both eyes and all related structures Neck: Neck: supple and no JVD Resp: Effort & Inspection: normal respiratory effort Auscultation: clear to auscultation bilaterally Cardio: Rate: regular rate Rhythm: regular rhythm GI: Auscultation: normal bowel sounds Skin: General skin exam: normal color and no rashes or lesions noted Neuro: Other: patient is awake alert well oriented does not have any lateralizing focal motor deficit able to walk with some assistance Extrem: General: normal to inspection Other: she says she is left-handed Psych: Mental Status: mental status grossly normal Objective Data Vital Signs Vital Signs: Vital Signs - 24 hr 08/31/19 22:00 09/01/19 06:00 09/01/19 14:00 Temperature 36.9 C 36.5 C 36.6 C Pulse Rate 104 H 73 51 L Respiratory Rate 18 16 16 Blood Pressure 106/65 104/57 L 120/75 Pulse Oximetry 100 97 91 09/01/19 14:08 Temperature Pulse Rate Respiratory Rate Blood Pressure Pulse Oximetry 95 Intake/Output Intake/Output: Intake & Output 08/29/19 08/30/19 08/31/19 09/01/19 23:59 23:59 23:59 23:59 Intake Total 315 1620 920 Output Total 20 300 Balance -20 315 1320 920 Meds/Results Medications: Active Medications Generic Name Dose Route Start Last Admin Trade Name Freq PRN Reason Stop Dose Admin Amitriptyline HCl 50 mg 08/30/19 21:00 08/31/19 21:30 Elavil PO 50 mg HS LUKE Administration Aspirin 81 mg 08/30/19 08:50 09/01/19 09:33 Aspirin Chewable PO 81 mg DAILY@0800 LUKE Administration Budesonide/Formoterol Fumarate 2 puff 09/01/19 08:00 Symbicort 160-4.5 Mcg (*Sp) Inhaler INHALATION Q12HRT LUKE Sodium Chloride 1,000 mls @ 100 mls/hr 09/01/19 10:45 09/01/19 11:30 Normal Saline Iv IV CONT 100 mls/hr .Q10H LUKE Administration Lisinopril 40 mg 08/31/19 09:00 08/31/19 10:08 Prinivil PO 40 mg DAILY LUKE Administration Lorazepam 0.5 mg 08/30/19 11:42 08/30/19 21:00 Ativan Inj IV PUSH 0.5 mg Q6H PRN Administration Anxiety/agitation Oxycodone HCl 40 mg 08/30/19 21:00 08/31/19 21:31 Oxycontin Sr 12hr PO 40 mg HS LUKE Administration Trazodone HCl 50 mg 08/30/19 21:0
[2019-09-01 20:00] VITALS: PULSE 72; RESP 16; O2SAT 100
[2019-09-01] MEDS: AMITRIPTYLINE HCL 25 MG TABLET 50 MG PO (20:49)
[2019-09-01] MEDS: traZODone HCL 50 MG TABLET PO (20:50)
[2019-09-01 21:51] VITALS: BP 146/66; PULSE 72; RESP 16; TEMP 37.2; O2SAT 100
[2019-09-02] MEDS: SODIUM CHLORIDE 0.9% IV 1,000 ML 100 ML IV CONT (03:26)
[2019-09-02 06:00] VITALS: BP 125/50; PULSE 65; RESP 18; TEMP 36.9; O2SAT 98
[2019-09-02 06:38] LABS: Hematocrit 37.5 % (37.0-47.0); Hemoglobin 12.6 g/dL (12.0-15.0); Mean Corpuscular HGB Conc 33.6 g/dl (32-36); Mean Corpuscular Hemoglobin 32.1 pg (26-34); Mean Corpuscular Volume 95.4 fl (80-100); Mean Platelet Volume 9.5 fl (7.4-10.4); Platelet Count Result 250 k/mm3 (150-375); Red Blood Count 3.93 M/mm3 (4.2-5.4); Red Cell Distribution Width 12.7 % (11.5-14.5); White Blood Count 8.3 K/mm3 (4.5-10.0)
[2019-09-02 07:15] LABS: Anion Gap 7.5 mmol/L (7-16); Blood Urea Nitrogen 22 mg/dL (7-17); Calcium 8.2 mg/dL (8.4-10.2); Carbon Dioxide 24 mmol/L (22-30); Chloride 106 mmol/L (98-107); Estimated Glomerular Filt Rate > 60; Glucose 100 mg/dL (65-105); Potassium 4.5 mmol/L (3.4-5.0); Sodium 133 mmol/L (137-145)
[2019-09-02 08:06] VITALS: PULSE 75; RESP 20; O2SAT 96
[2019-09-02] MEDS: ASPIRIN 81 MG CHEWABLE TABLET PO (08:16)
--- NOTE | 2019-09-02 13:37 | PM.DS ---
DS: Admitting Diagnosis Admitting Diagnosis Admitting Diagnosis: Tobacco use DS: Discharge Diagnosis Discharge Diagnosis (1) MORRIS (acute kidney injury): Code(s): N17.9 - Acute kidney failure, unspecified Status: Acute Assessment and Plan: Patient's Cr normal on admission but jumped to 1.9 one day without clear etiology. No evidence of urinary retention. Could be related to her improved BP. Cr the next day was 0.8 so unclear on etiolgoy. She was treated with IV fluids. We held her Lisinopril. She does state she takes this at home. BP stable off anti-HTn meds. (2) Hyperkalemia: Code(s): E87.5 - Hyperkalemia Status: Acute Assessment and Plan: Potassium was low and was replaced. Potassium level elevated felt related to the MORRIS and recent potassium supplements. Potassium normallized with IV fluids and improvement with renal function. (3) Altered mental status: Qualifiers: Altered mental status type: unspecified Qualified Code(s): R41.82 - Altered mental status, unspecified Code(s): R41.82 - Altered mental status, unspecified Status: Acute Assessment and Plan: Etiology concerning for CVA but more likely related to narcotic withdrawal but can not exclude related to severe HTN. Patient does have a history of CVA and continues to smoke. No evidence of infection. CXR clear. MRI showing old infarcts involving the right basal ganglia, right internal capsule, and right cerebellum. Echocardiogram showing EF 70%, Grade I DD, possible patent foramen ovale. LDL 63 adnd HDL 39. We continued PT/OT/ST. Since no acute CVA, will hold on ELAINA. We continued ASA. Defer to PCP for statin therapy since she has hx of CVA. (4) Chronic narcotic use: Code(s): F11.90 - Opioid use, unspecified, uncomplicated Status: Acute Assessment and Plan: Patient has been out of her narcotics for a few days prior to onset of symptoms. It appears she takes this more than prescribed per . We have resumed her scheduled OxyContin at the home dose listed at night. Mental status has improved and no findings to suggest CVA. Suspect symptoms related to narcotic withdrawal. She has listed that she takes OxyContin 80mg TID prn but suspect this is inaccurate. Patient was informed about the need to ensure that she takes her medication appropriately so she does not run out at times. (5) Essential hypertension, benign: Code(s): I10 - Essential (primary) hypertension Status: Acute Assessment and Plan: BP markedly elevated on admission to 236/199. Possibly related to her not taking her medicatins. Home lisinopril resumed since no CVA by MRI. BP became much better controlled. Lisinopril was placed on hold as above. Plan to discharge with low dose Norvasc (6) COPD (chronic obstructive pulmonary disease): Code(s): J44.9 - Chronic obstructive pulmonary disease, unspecified Status: Acute Assessment and Plan: Stable. We continued Breo. (7) Tobacco abuse: Code(s): Z72.0 - Tobacco use Status: Acute Assessment and Plan: Patient educated about the benefits of smoking cessation. DS: Summary Hospital Course Reason for hospitalization: 74yo female here for altered mental status. Please see H&P for details. Hospital Course: As above Time Spent with Patient Time attestation: Total time spent providing and/or coordinating discharge services: 34 minutes Time spent: Greater than 30 minutes Specific discharge activities: Patient seen and examined. Discussed with and son. Also discussed with Dr Orozco Exam Narrative: Exam Narrative: AF 125/50 75 20 96% Gen - NARD Chest - CTA bilateraly, nml RR CV - RRR S1/S2 Abd - soft. ND/NT, +BS. fullness in the LUQ Ext - No pedal edema. Psych - Alert and appropriate. Skin - Warm and dry DS: Data Data Completed and Pending
[2019-09-02 14:00] VITALS: BP 125/61; PULSE 70; RESP 16; TEMP 36.9; O2SAT 97
[2019-09-02] MEDS: CALCIUM CARBONATE (TUMS) 500 MG (200 MG ELEMENTAL) PO (14:07)
--- NOTE | 2019-09-02 15:41 | WPDNEUROPN ---
Progress Note: A&P Assessment and Plan (1) MORRIS (acute kidney injury): Code(s): N17.9 - Acute kidney failure, unspecified Status: Acute (2) Hyperkalemia: Code(s): E87.5 - Hyperkalemia Status: Acute (3) Arthritis: Code(s): M19.90 - Unspecified osteoarthritis, unspecified site Status: Acute (4) Tobacco abuse: Code(s): Z72.0 - Tobacco use Status: Acute (5) COPD (chronic obstructive pulmonary disease): Code(s): J44.9 - Chronic obstructive pulmonary disease, unspecified Status: Acute (6) Chronic narcotic use: Code(s): F11.90 - Opioid use, unspecified, uncomplicated Status: Acute (7) Altered mental status: Qualifiers: Altered mental status type: unspecified Qualified Code(s): R41.82 - Altered mental status, unspecified Code(s): R41.82 - Altered mental status, unspecified Status: Acute Additional Plan discussed with the he is happy with the care she received and taking her home Review of Systems Review of Systems: All systems reviewed & are unremarkable except as noted in HPI and below Exam Const: General: comfortable and no acute distress HENMT: General nose exam: Normal nares present Mouth: Yes moist mucous membranes Eyes: General: appearance normal, both eyes and all related structures Neck: Neck: supple and no JVD Resp: Effort & Inspection: normal respiratory effort Auscultation: clear to auscultation bilaterally Cardio: Rate: regular rate Rhythm: regular rhythm GI: Auscultation: normal bowel sounds Neuro: Other: patient's overall neurological status particularly referring to the mental status has significantly improved and back to her baseline Extrem: General: normal to inspection Psych: Mental Status: mental status grossly normal Objective Data Vital Signs Vital Signs: Vital Signs - 24 hr 09/01/19 20:00 09/01/19 21:51 09/02/19 06:00 Temperature 37.2 C 36.9 C Pulse Rate 72 72 65 Respiratory Rate 16 16 18 Blood Pressure 146/66 H 125/50 L Pulse Oximetry 100 100 98 09/02/19 08:06 09/02/19 14:00 Temperature 36.9 C Pulse Rate 75 70 Respiratory Rate 20 16 Blood Pressure 125/61 Pulse Oximetry 96 97 Intake/Output Intake/Output: Intake & Output 07/22/20 07/23/20 07/24/20 07/25/20 23:59 23:59 23:59 23:59 Intake Total 315 1620 3660 2540 Output Total 770 617 2714 Balance 315 1320 3060 -260 Meds/Results Medications: Active Medications Generic Name Dose Route Start Last Admin Trade Name Freq PRN Reason Stop Dose Admin Amitriptyline HCl 50 mg 08/30/19 21:00 09/01/19 20:49 Elavil PO 50 mg HS LUKE Administration Aspirin 81 mg 08/30/19 08:50 09/02/19 08:16 Aspirin Chewable PO 81 mg DAILY@0800 LUKE Administration Budesonide/Formoterol Fumarate 2 puff 09/01/19 08:00 09/02/19 08:06 Symbicort 160-4.5 Mcg (*Sp) Inhaler INHALATION 2 puff Q12HRT LUKE Administration Calcium Carbonate 200 mg 09/02/19 13:58 09/02/19 14:07 Tums PO 200 mg Q6H PRN Administration Indigestion Lisinopril 40 mg 08/31/19 09:00 08/31/19 10:08 Prinivil PO 40 mg DAILY LUKE Administration Lorazepam 0.5 mg 08/30/19 11:42 09/02/19 03:33 Ativan Inj IV PUSH 0.5 mg Q6H PRN Administration Anxiety/agitation Oxycodone HCl 40 mg 08/30/19 21:00 09/01/19 20:49 Oxycontin Sr 12hr PO 40 mg HS LUKE Administration Trazodone HCl 50 mg 08/30/19 21:00 09/01/19 20:50 Desyrel PO 50 mg HS LUKE Administration Radiology Results: ITS Impressions Head/Neck CTA 08/29/19 23:15 IMPRESSION: 1. Areas of prior infarction without acute intracranial abnormality. Normal head CTA. 2. 44% stenosis of the proximal right internal carotid artery relative to normal distal artery lumen diameter (NASCET criteria). 3. 11% stenosis of the proximal left internal carotid artery relative to normal distal artery lumen diameter. 4. Moderate emphy
== END 2019-09-02 14:55 | disposition home health service (06) | DRG 683 ==
LOC: ANHED 08-30 00:34 → ANH3MEDSUR 08-30 00:48
PROVIDERS: Emergency Medicine; Admitting Provider Family Medicine; Emergency Provider Emergency Medicine; PCP Family Medicine Adolescent Medicine; Visit Provider Internal Medicine
DX: N17.9 Acute kidney failure, unspecified (principal); F11.23 Opioid dependence with withdrawal; R41.82 Altered mental status, unspecified; J44.9 Chronic obstructive pulmonary disease, unspecified; E87.5 Hyperkalemia; I10 Essential (primary) hypertension; M19.90 Unspecified osteoarthritis, unspecified site; F17.210 Nicotine dependence, cigarettes, uncomplicated; M54.5 Low back pain; G89.29 Other chronic pain
CPT/HCPCS: 36415; 51701; 70496; 70498; 70553; 71045; 80048; 80053; 80061; 80069; 80307; 81001; 82607; 82746; 83735; 84100; 84132; 84443; 85025; 85027; 92610; 93005; 93306; 94640; 96372; 96374; 96375; 97110; 97116; 97161; 97165; 97535; 99285; A9270; A9577; J1630; J2060; J7030; Q9967

== ENCOUNTER 2020-02-28 21:25 | Inpatient (IN) | payer MEDICARE, OTHER, SELFPAY ==
--- NOTE | ~2020-02-28 | XR_ITS ---
EXAMINATION: XR chest 1V portable INDICATION: Transient alteration of awareness TECHNIQUE: Portable AP chest at 2253 hours COMPARISON: 08/30/2019 FINDINGS: The lungs are free of acute opacities. There is no pleural effusion or pneumothorax. The ca rdiomediastinal silhouette is normal. There are changes of anterior and posterior fusion procedure at the cervicothoracic junction and posterior fusion in the lumbar spine. Surgical clips are noted at t he gastroesophageal junction and in the left upper quadrant. IMPRESSION: 1. No acute cardiopulmonary abnormality. Reviewed, dictated and finalized at location A. O DIRECTOR
--- NOTE | ~2020-02-28 | MR_ITS ---
EXAMINATION: MR brain/brain stem wo con EXAM DATE: 03/02/2020 13:37 INDICATION: Persistent confusion. TECHNIQUE: Magnetic resonance imaging (MRI) of the brain/brain stem obtained without contrast. Sagit radha T1, axial diffusion, gradient echo (T2*), T1, T2, FLAIR sequences obtained. Patient was then inj ected with 7 cc intravenous Multihance contrast. Axial and coronal postcontrast T1 weighted sequences obtained. Comparison is made to prior examination from 08/30/2019. FINDINGS: There are no areas of restricted diffusion to suggest acute infarction. There is no acute hemorrhage seen on the T2*, a hemosiderin sensitive sequence. No intraparenchymal brain mass lesion. There is old small right frontal lobe periventricular lacunar infarction. There is old small right cerebellar infarction. There is mild to moderate microangiopathy and cerebral atrophy. There are no extra-axial collections. Flow voids are seen in the cerebral arteries on the T2-weighted sequences consistent with their expected patency. The orbits are unremarkable. Soft tissue is unremarkable. There are no areas of abnormal enhancement on the postcontrast images. IMPRESSION: 1. 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 2. Chronic age related findings. Reviewed, dictated and finalized at location A. AL TESTER
--- NOTE | ~2020-02-28 | CT_ITS ---
EXAMINATION: CT brain wo con INDICATION: Altered mental status COMPARISON: 08/29/2019 TECHNIQUE: Standard unenhanced head CT. The dose-length product (DLP) was 605.33 mGy-cm. The mA was a djusted according to patient size. Iterative reconstruction technique was employed. FINDINGS: There is no acute intraparenchymal hemorrhage. No evidence of mass lesion. No evidence of a cute infarction. There are old infarcts of the right basal ganglia, right internal capsule, and right cerebellum. There is mild periventricular and subcortical hypodensity probably related to small vess el ischemic disease. There is mild prominence of the sulci and ventricles related to cerebral atrophy . Intracranial calcified cerebral atherosclerosis is noted. There are no extra-axial collections. The re is no mass effect or midline shift. Changes in the globes are likely from ocular lens surgery. Th e visualized sinuses and mastoid air cells are well aerated. IMPRESSION: 1. Areas of prior infarction without acute intracranial abnormality. 2. Age related findings. Reviewed, dictated and finalized at location A. RICT MANAGER [employer]
--- NOTE | ~2020-02-28 | CT_ITS ---
EXAMINATION: CT abdomen pelvis wo con DATE: 03/01/2020 08:26 INDICATION: Fever. Leukocytosis. TECHNIQUE: Computed tomography (CT) of the abdomen and pelvis was performed without intravenous contr ast. Automated exposure control and iterative reconstruction technique were employed. The dose-length product was 200.65 mGy-cm. COMPARISON: None. FINDINGS: The visualized portions of the lung bases demonstrate emphysema and mild atelectasis. No pl eural effusion. The heart size is normal. There are coronary artery calcifications. No pericardial ef fusion. There are surgical clips around the gastroesophageal junction. There is mild intrahepatic irish iary duct dilatation. There is a 1.7 cm cyst in left hepatic lobe. The gallbladder is decompressed or absent. Sensitivity is decreased by lack of intravenous contrast and the paucity of abdominal fat. T he spleen is normal. There are calcifications in the pancreas, consistent with chronic pancreatitis. There are surgical changes of the stomach. The adrenal glands are normal. There are cysts in the kidn eys measuring up to 1.8 cm on the right. There is a 4 mm hemorrhagic cyst in left kidney. There is a 3 mm stone in left kidney. There is a Rodriguez catheter in expected position. There are surgical changes in the bowel. There are no dilated loops of bowel. The appendix is not visualized. There are no path ologically enlarged lymph nodes. There is no free intraperitoneal fluid. There is a burst fracture of T12 with 2/5 loss of height and retropulsion of bone 3 mm into central spinal canal. There is severe lumbar spondylosis. There are changes of anterior fusion procedure at L4-L5 and posterior fusion pro cedure from L3 to S1. IMPRESSION: 1. Mild intrahepatic biliary duct dilatation. 2. Emphysema. 3. Small nonobstructing left kidney stone. 4. Burst fracture of T12, likely subacute. Reviewed, dictated and finalized at location D. DER AND PLATER
[2020-02-28 21:23] VITALS: BP 167/90; PULSE 96; RESP 20; TEMP 36.7; O2SAT 98
--- NOTE | 2020-02-28 21:40 | ECG_ITS ---
Measurements Intervals [place] Rate: 64 P: 81 NH: 166 QRS: 70 QRSD: 84 T: 81 QT: 407 QTc: 422 Interpretive Statements SINUS RHYTHM BORDERLINE ST-T WAVE ABNORMALITY- HIGH LATERAL LEADS BASELINE ARTIFACT- I, II, III, V1-V3 BORDERLINE ECG Electronically Signed On 02-29-2020 7:16:33 [employer] by Cheng Nazario D.O.
--- NOTE | 2020-02-28 21:42 | ED.AMS ---
HPI - Altered Mental Status General Chief Complaint: Altered Mental Status Stated Complaint: combative and confused Source: patient Mode of arrival: ambulatory Limitations: no limitations History of Present Illness HPI narrative: A 74-year-old female presents to the emergency department with complaints of altered mental status. The patient just repeats herself saying my is lying! Her presents and is able to expand on the history. He states that she has been on oxycodone every night for the past 10 to 12 years. He notes that this is happened a couple times before when she has missed a couple doses. He states due to insurance changes she has been without this medication for the last couple of days and he thinks her symptoms may be related to this. Related Data Home Medications Medication Instructions Recorded Confirmed amitriptyline 50 mg PO HS 08/29/19 08/30/19 oxycodone [OxyContin] 40 mg PO HS 08/29/19 08/30/19 Breo Ellipta 1 inh INHALATION DAILY 08/30/19 08/30/19 trazodone 50 mg PO HS 08/30/19 08/30/19 furosemide 40 mg PO HS 02/28/20 02/28/20 oxycodone [OxyContin] 80 mg PO BID 02/28/20 02/28/20 Allergies Allergy/AdvReac Type Severity Reaction Status Date / Time codeine Allergy Intermediate Rash Verified 08/29/19 22:13 CODEINE (Generic Allergy) Allergy Unknown Y Uncoded 01/07/17 00:00 CODIENE Allergy Unknown Rash Uncoded 08/29/19 22:13 NKFA Allergy Unknown Rash Uncoded 08/29/19 22:13 Review of Systems Review of Systems: ROS unobtainable: Yes unobtainable due to mental status PMFSH Past Medical History Medical History Arthritis Chronic narcotic use COPD (chronic obstructive pulmonary disease) Diverticulosis Essential hypertension, benign History of peptic ulcer Tobacco abuse Surgical History Surgical History Hx of dilation and curettage 2001 Hx of spinal surgery 2 cervical (front) and 1 cervical posterior 2 lumbar surgeries S/P appy 1955 S/P cholecystectomy 1971 Family History Family History Other Lung cancer Social History Social History Social History: Home with . Worked at [employer]. Hx of tobacco use. Full code. Smokes 3-4 cig/day. No alcohol. would be making medical decision for her if she is not able. Smoking packs per day: 0.25 Smoking cigarettes per day: 5.0 Years smoked: 10 Smoking pack-years: 2.50 Smoking status: Current every day smoker Tobacco type: cigarettes Alcohol intake: never Substance use: never Gender identity (if verbalized by the patient): Female Spiritual care concerns: No Exam Narrative: Exam Narrative: GENERAL: Well-appearing, well-nourished, and in no acute distress. HEAD: Normocephalic, atraumatic. EYES: PERRLA and EOMI. ENT: Nares clear, no rhinorrhea or epistaxis. Mucous membranes moist. Oropharynx without tonsillar hypertrophy exudate or other lesions. Bilateral TMs pearly cummins nonbulging NECK: Supple. No adenopathy or masses. No carotid bruits or JVD CHEST: Clear to auscultation. No respiratory distress. No wheezes rales or rhonchi HEART: Regular rate and rhythm. No murmur heard. Normal peripheral pulses. ABDOMEN: Soft, nontender, nondistended, normal active bowel sounds. EXTREMITIES: Normal range of motion. No edema. SKIN: Warm, dry, no rash. NEURO: No focal deficits. Alert and oriented x2. PSYCH: Normal mood and affect. Course Reevaluation(s) Reevaluation #1: Patient sleeping soundly at this time. Updated her to the plan to admit. He is in agreement with this. He notes his biggest concern is that as altered as she has been getting her to trying take her medications proved to be quite a challenge tonight he is worried that she will not be able to take her medications o
[2020-02-28 22:25] LABS: Basophils Absolute Auto 0.1 K/mm3 (0.0-0.1); Basophils Percent Auto 0.3 % (0.2-1.2); Hematocrit 38.5 % (37.0-47.0); Hemoglobin 12.6 g/dL (12.0-15.0); Immature Granulocyte Absolute 0.07 K/mm3 (0.00-0.031); Immature Granulocyte Percent A 0.5 % (0-0.5); Lymphocytes Absolute Auto 0.93 K/mm3 (0.9-3.2); Lymphocytes Percent Auto 6.1 % (18.3-44.2); Mean Corpuscular HGB Conc 32.7 g/dl (32-36); Mean Corpuscular Hemoglobin 32.6 pg (26-34); Mean Corpuscular Volume 99.7 fl (80-100); Mean Platelet Volume 9.3 fl (7.4-10.4); Monocytes Absolute Auto 1.3 K/mm3 (0.1-0.6); Monocytes Percent Auto 8.4 % (2.6-8.5); Neutrophils Absolute Auto 12.8 K/mm3 (1.3-6.7); Neutrophils Percent Auto 84.7 % (45.5-73.1); Platelet Count Result 295 k/mm3 (150-375); Red Blood Count 3.86 M/mm3 (4.2-5.4); Red Cell Distribution Width 13.9 % (11.5-14.5); White Blood Count 15.2 K/mm3 (4.5-10.0)
[2020-02-28 22:30] VITALS: BP 98/62; PULSE 62; RESP 18; O2SAT 99
[2020-02-28] MEDS: SODIUM CHLORIDE 0.9% IV 1,000 ML 999 ML (22:35)
[2020-02-28 22:36] LABS: INR 0.9; Prothrombin Time 13.2 Seconds (11.1-14.7)
[2020-02-28 22:37] LABS: Acetaminophen < 10 ug/mL (10-30); Ethanol < 10 mg/dL (<10); Salicylate < 1.0 mg/dL (2-20)
[2020-02-28 22:39] LABS: Alanine Aminotransferase 22 U/L (4-35); Albumin Level 4.1 g/dL (3.5-5.1); Alkaline Phosphatase 52 U/L (38-126); Anion Gap 7 mmol/L (8-16); Aspartate Amino Transferase 30 U/L (14-36); Bilirubin,Total 0.4 mg/dL (0.2-1.3); Blood Urea Nitrogen 32 mg/dL (7-17); Calcium 9.3 mg/dL (8.4-10.2); Carbon Dioxide 26 mmol/L (22-30); Chloride 104 mmol/L (98-107); Estimated CRCL calculation 17 ml/min; Estimated Glomerular Filt Rate 23; Glucose 115 mg/dL (65-105); Potassium 4.4 mmol/L (3.4-5.0); Sodium 137 mmol/L (137-145)
[2020-02-28 22:50] LABS: Troponin I 0.018 ng/mL (0.000-0.034)
[2020-02-28 22:57] LABS: Lactic Acid Reflex 1.6 mmol/L (0.7-2.1)
[2020-02-28 23:03] LABS: Partial Thromboplastin Time < 20.0 SECONDS (22.3-36.8)
[2020-02-28 23:30] LABS: Add Urine Microscopic? YES; Appearance Urine Turbid (Clear); Bilirubin Urine Negative (Negative); Blood Urine 3+ (Negative); Color Urine Yellow (Yellow); Glucose Urine UA Negative (Negative); Ketones Urine Trace mg/dL (Negative); Leukocyte Esterase Ur 2+ LEU/UL (Negative); Nitrate Urine Negative (Negative); Protein Urine 2+ mg/dL (Negative); RBC Urine >75 /hpf (0-2); Specific Grav Ur 1.019 (1.001-1.035); Squamous Epithelial Cell Urine Many /hpf (Few); Urobilinogen Urine Negative mg/dL (<2.0); WBC Clumps Urine Present /HPF; WBC Urine >75 /hpf
[2020-02-28 23:42] LABS: Barbiturate Screen Urine Negative (Negative); Benzodiazepines Screen Urine Negative (Negative)
[2020-02-28 23:48] VITALS: BP 103/54; PULSE 60; RESP 18; O2SAT 100
[2020-02-28 23:57] LABS: Amphetamine Screen Urine Negative (Negative); Cannabinoid Screen Urine Negative (Negative); Cocaine Screen Urine Negative (Negative); Methadone Screen Urine Negative (Negative); Opiate Screen Urine Positive (Negative); Phencyclidine Screen Urine Negative (Negative)
[2020-02-29] VITALS (11 sets, daily range): BP systolic 113–207; BP diastolic 56–98; PULSE 54–121; RESP 14–20; TEMP 36.1–37.3; O2SAT 94–100; BMI 23.4
[2020-02-29] MEDS: LACTATED RINGERS 1,000 ML 999 ML IV CONT (00:14)
[2020-02-29] MEDS: LACTATED RINGERS 1,000 ML 125 ML IV CONT ×2 (01:08→09:11)
--- NOTE | 2020-02-29 01:40 | ADMGEN ---
This patient, Etienne Cabrera, was admitted to [facility] Surg Room 303-01. Patient/family oriented to hospital policies and general routines including ID bracelet, bed and alarms, visiting hours, pain management, procedures, bathroom and other care routines, personal items, smoking policy, room service/diet, and visiting hours. Information on how to activate the Rapid Response Team has been discussed. Patient/Family are encouraged to report perceived risks to care and to ask questions if they do not understand what they are told or what they should do.
--- NOTE | 2020-02-29 02:33 | PM.IMHP ---
H&P: HPI History of Present Illness Date/Time: 02/29/20 02:33 Chief Complaint: Acute Altered Mental Status. Narrative: This is a 74 year old female with known COPD, HTN, and chronic narcotic use who presented to the hospital with a complaint of acute altered mental status. The patient was found to be repeating my is lying! over and over again. Apparently the patient has been on oxycodone for the past 12 years and she has missed a couple of doses. He went to the pharmacy and purchased her oxycodone out of pocket as the insurance company was not going to cover the medication and he gave her a dose according to the ER provider. On my encounter with the patient she is alone and her family is note present. The patient is clearly encephalopathic and answers every question with My name is Etienne Cabrera . No further history is obtainable from her due to her altered mental status. Evaluation in the ER demonstrated leukocytosis of 15,200, acute renal failure w/ Cr of 2.10, and a grossly abnormal urinalysis. Brain CT was unremarkable for any acute pathology. She was treated with IV fluids and IV antibiotics. No other history is obtainable secondary to the patient's altered mental status. Review of Systems Review of Systems: All systems reviewed & are unremarkable except as noted in HPI and below PMFSH Past Medical History Medical History Arthritis Chronic narcotic use COPD (chronic obstructive pulmonary disease) Diverticulosis Essential hypertension, benign History of peptic ulcer Tobacco abuse Surgical History Surgical History Hx of dilation and curettage 2001 Hx of spinal surgery 2 cervical (front) and 1 cervical posterior 2 lumbar surgeries S/P appy 1955 S/P cholecystectomy 1970 Family History Family History Other Lung cancer Social History Social History Social History: Home with . Worked at [employer]. Hx of tobacco use. Full code. Smokes 3-4 cig/day. No alcohol. would be making medical decision for her if she is not able. Smoking packs per day: 0.25 Smoking cigarettes per day: 5.0 Years smoked: 10 Smoking pack-years: 2.50 Smoking status: Smoker, status unknown Alcohol intake: never Substance use: never Gender identity (if verbalized by the patient): Female Spiritual care concerns: No Meds Home Medications and Allergies Home Medications Medication Instructions Recorded Confirmed Type amitriptyline 50 mg PO HS 08/29/19 02/29/20 History oxycodone [OxyContin] 40 mg PO HS 08/29/19 02/29/20 History Breo Ellipta 1 inh INHALATION DAILY 08/30/19 02/29/20 History amlodipine [Norvasc] 2.5 mg PO DAILY #30 tablet 09/02/19 02/29/20 Rx aspirin [Children's Aspirin] 81 mg PO DAILY@0800 #30 tablet 09/02/19 02/29/20 Rx furosemide 40 mg PO HS 02/28/20 02/28/20 History oxycodone [OxyContin] 80 mg PO BID 02/28/20 02/28/20 History Allergies Allergy/AdvReac Type Severity Reaction Status Date / Time codeine Allergy Intermediate Rash Verified 08/29/19 22:13 CODEINE (Generic Allergy) Allergy Unknown Y Uncoded 01/07/17 00:00 CODIENE Allergy Unknown Rash Uncoded 08/29/19 22:13 NKFA Allergy Unknown Rash Uncoded 08/29/19 22:13 Vital Signs Vital Signs - 24 hr 02/28/20 21:23 02/28/20 22:30 02/28/20 23:48 Temperature 36.7 C Pulse Rate 96 62 60 Respiratory Rate 20 18 18 Blood Pressure 167/90 H 98/62 L 103/54 L Pulse Oximetry 98 99 100 02/29/20 00:30 02/29/20 01:00 Temperature 36.1 C L Pulse Rate 64 60 Respiratory Rate 14 16 Blood Pressure 113/56 L 134/84 Pulse Oximetry 100 94 Exam Const: General: alert, awake and other (Confused and encephalopathic. ) Nutritional Appearance: thin and underweight Orientation/consciousness: confus
[2020-02-29 03:37] LABS: Alveolar/Arterial O2 Gradient 23.8 mmHg; Base Excess ABG -3.8 mEq/l (+/-2.0); Fractional Inspired Oxygen 21 %; HCO3 ABG 21.5 mEq/l (22.0-26.0); Oxygen Content ABG 16.2 %vol (16.0-22.0); Oxygen Saturation ABG 95.1 % (95.0-100.0); Oxyhemoglobin 94.2 % THb (90.0-100.0); PCO2 ABG 39.8 mmHg (35.0-45.0); PO2 ABG 78.3 mmHg (80.0-100.0); PO2 FiO2 Ratio Arterial Blood 3.73 %; Total Hemoglobin 12.2 g/dL (12.0-18.0)
[2020-02-29 03:38] LABS: Device ROOM AIR; Site Drawn LEFT BRACHIAL
[2020-02-29 03:59] LABS: Ammonia < 9 umol/L (9-30); Creatine Kinase 111 U/L (30-135)
[2020-02-29 05:11] LABS: Folic Acid > 20.0 ng/mL (2.76->20)
[2020-02-29 13:04] LABS: Free T4 Free Thyroxine 1.06 ng/mL (0.78-2.19)
[2020-02-29] MEDS: hydrALAZINE HCL 20 MG/ML VIAL 10 MG IV PUSH (13:56)
--- NOTE | 2020-02-29 15:15 | ECG_ITS ---
Measurements Intervals Boles Rate: 122 P: 86 [place]: 140 QRS: 81 QRSD: 85 T: 71 QT: 310 QTc: 443 Interpretive Statements SINUS TACHYCARDIA CANNOT RULE OUT SEPTAL INFARCT, AGE INDETERMINATE BASELINE ARTIFACT- I, II, III, AVR, AVL, AVF, V6 ABNORMAL ECG Electronically Signed On 02-29-2020 15:56:55 CERAMICS ARTIST by Cheng Nazario D.O.
[2020-02-29] MEDS: LORazepam INJ (*CRX) 2 MG/ML VIAL 0.5 MG IV PUSH (15:17)
--- NOTE | 2020-02-29 15:20 | PM.IMPN ---
Progress Note: A&P Assessment and Plan (1) Acute encephalopathy: Code(s): G93.40 - Encephalopathy, unspecified Status: Acute Assessment and Plan: it sounds like the patient has had improvement with the current therapy as she is technically alert and oriented x4 although still delirious -CT of the brain negative -ammonia and B12 normal -likely due to UTI and dehydration, continue with IV antibiotics -await blood cultures -consider drug overdose initially but now she appears to possibly be in withdrawal -patient insists she did not ingest any chemicals, anion gap is normal -salicylate level normal, drug screen only positive for opioids -serotonin syndrome seems less likely since she is only on amitriptyline and CK level is normal with no rigidity on my exam -other etiologies which are unlikely could be: Carcinoid syndrome, pheochromocytoma and her recent flushing and symptoms could also be from a reaction to hydralazine? -Will give 0.5 mg of Ativan, obtain labs, obtain CT abdomen pelvis, and order EKG -consider brain MRI that the patient does not improve . (2) Abnormal urinalysis: Code(s): R82.90 - Unspecified abnormal findings in urine Status: Acute Assessment and Plan: Await urine culture and adjust medications as necessary -continue ceftriaxone (3) Acute renal failure: Qualifiers: Acute renal failure type: unspecified Qualified Code(s): N17.9 - Acute kidney failure, unspecified Code(s): N17.9 - Acute kidney failure, unspecified Status: Acute Assessment and Plan: Will stop IV fluids at this time since the patient is eating and drinking and her blood pressure is greater than 200 systolic -repeat BMP, if it is worse may consider renal ultrasound (4) Abnormal TSH: Code(s): R79.89 - Other specified abnormal findings of blood chemistry Status: Acute Assessment and Plan: For some reason TSH was repeated and was normal -T4 was checked and was normal (5) Hypertension: Qualifiers: Hypertension type: unspecified Qualified Code(s): I10 - Essential (primary) hypertension Code(s): I10 - Essential (primary) hypertension Status: Chronic Assessment and Plan: Last blood pressure 207/87 after receiving hydralazine about 30 minutes prior -will start home Norvasc immediately -after this medication is given, I have asked EZEQUIEL Coreas to repeat blood pressure and call with results -obtain EKG -patient has no chest pain or headache at this time -could be from narcotic withdrawal? (6) Chronic narcotic use: Code(s): F11.90 - Opioid use, unspecified, uncomplicated Status: Chronic Assessment and Plan: Will restart oxycodone at a lower dose -will likely need increased doses of this (7) Suspected 2019 novel coronavirus infection: Code(s): Z20.822 - Contact with and (suspected) exposure to COVID-19 Status: Acute Assessment and Plan: The patient was swabbed for COVID-19 in the ER t[place]. - Continue droplet isolation. -Continue supportive care. Time Spent With Patient Time with patient: 25 - 35 minutes Subjective Date/time seen: 02/29/20 15:20 Interval history: Pt is a 74-year-old female here for UTI, altered mental status and MORRIS. Patient was seen today after speaking with the nurse who states that she started getting red and her blood pressure was elevated. Patient was seen and had no complaints at the time my exam. Although she was alert and oriented , she was delirious at times and made off topic statements. During the exam she states she is not any pain. She specifically denies chest pain, shortness of breath, fevers, chills, nausea, vomiting, headache,leg swelling, hallucinations, or weakness. I reviewed her case again and she insists that she did not take any more medication than normal and did not take any other substances. She does not exactly remember
[2020-02-29] MEDS: amLODIPine BESYLATE 5 MG TABLET PO (15:27)
[2020-02-29 16:38] LABS: Basophils Absolute Auto 0.1 K/mm3 (0.0-0.1); Basophils Percent Auto 0.4 % (0.2-1.2); Eosinophils Percent Auto 0.1 % (0-4.4); Hematocrit 39.2 % (37.0-47.0); Hemoglobin 13.3 g/dL (12.0-15.0); Immature Granulocyte Absolute 0.06 K/mm3 (0.00-0.031); Immature Granulocyte Percent A 0.5 % (0-0.5); Lymphocytes Absolute Auto 0.96 K/mm3 (0.9-3.2); Lymphocytes Percent Auto 8.3 % (18.3-44.2); Mean Corpuscular HGB Conc 33.9 g/dl (32-36); Mean Corpuscular Hemoglobin 32.4 pg (26-34); Mean Corpuscular Volume 95.4 fl (80-100); Mean Platelet Volume 9.3 fl (7.4-10.4); Monocytes Absolute Auto 0.6 K/mm3 (0.1-0.6); Monocytes Percent Auto 5.4 % (2.6-8.5); Neutrophils Absolute Auto 9.9 K/mm3 (1.3-6.7); Neutrophils Percent Auto 85.3 % (45.5-73.1); Platelet Count Result 306 k/mm3 (150-375); Red Blood Count 4.11 M/mm3 (4.2-5.4); Red Cell Distribution Width 13.4 % (11.5-14.5); White Blood Count 11.6 K/mm3 (4.5-10.0)
[2020-02-29 16:55] LABS: Lactic Acid Reflex 1.4 mmol/L (0.7-2.1)
[2020-02-29 16:57] LABS: Alanine Aminotransferase 23 U/L (4-35); Albumin Level 4.4 g/dL (3.5-5.1); Alkaline Phosphatase 67 U/L (38-126); Anion Gap 5 mmol/L (8-16); Aspartate Amino Transferase 37 U/L (14-36); Bilirubin,Total 0.6 mg/dL (0.2-1.3); Blood Urea Nitrogen 16 mg/dL (7-17); CRP 1.7 mg/dL (<1.0); Calcium 9.5 mg/dL (8.4-10.2); Carbon Dioxide 28 mmol/L (22-30); Chloride 103 mmol/L (98-107); Estimated CRCL calculation 56 ml/min; Estimated Glomerular Filt Rate > 60; Glucose 110 mg/dL (65-105); Potassium 3.7 mmol/L (3.4-5.0); Sodium 136 mmol/L (137-145)
[2020-02-29 17:05] LABS: Troponin I 0.022 ng/mL (0.000-0.034)
[2020-03-01] VITALS (10 sets, daily range): BP systolic 125–173; BP diastolic 69–86; PULSE 80–109; RESP 18; TEMP 36.4–37.6; O2SAT 95–100
[2020-03-01] MEDS: hydrALAZINE HCL 20 MG/ML VIAL 10 MG IV PUSH (01:05)
[2020-03-01 01:27] LABS: SARS-CoV-2 RNA PCR Negative
[2020-03-01] MEDS: LACTATED RINGERS 1,000 ML 50 ML IV CONT (05:56)
[2020-03-01 06:36] LABS: Basophils Absolute Auto 0.1 K/mm3 (0.0-0.1); Basophils Percent Auto 0.5 % (0.2-1.2); Eosinophils Percent Auto 0.1 % (0-4.4); Hematocrit 42.5 % (37.0-47.0); Hemoglobin 14.7 g/dL (12.0-15.0); Immature Granulocyte Absolute 0.05 K/mm3 (0.00-0.031); Immature Granulocyte Percent A 0.4 % (0-0.5); Lymphocytes Percent Auto 15.5 % (18.3-44.2); Mean Corpuscular HGB Conc 34.6 g/dl (32-36); Mean Corpuscular Hemoglobin 32.6 pg (26-34); Mean Corpuscular Volume 94.2 fl (80-100); Mean Platelet Volume 9.6 fl (7.4-10.4); Monocytes Absolute Auto 0.9 K/mm3 (0.1-0.6); Monocytes Percent Auto 7.1 % (2.6-8.5); Neutrophils Absolute Auto 9.9 K/mm3 (1.3-6.7); Neutrophils Percent Auto 76.4 % (45.5-73.1); Platelet Count Result 320 k/mm3 (150-375); Red Blood Count 4.51 M/mm3 (4.2-5.4); Red Cell Distribution Width 13.3 % (11.5-14.5); White Blood Count 12.9 K/mm3 (4.5-10.0)
[2020-03-01 06:53] LABS: Alanine Aminotransferase 21 U/L (4-35); Albumin Level 4.3 g/dL (3.5-5.1); Alkaline Phosphatase 70 U/L (38-126); Anion Gap 9 mmol/L (8-16); Aspartate Amino Transferase 36 U/L (14-36); Bilirubin,Total 0.5 mg/dL (0.2-1.3); Blood Urea Nitrogen 14 mg/dL (7-17); Calcium 9.9 mg/dL (8.4-10.2); Carbon Dioxide 25 mmol/L (22-30); Chloride 103 mmol/L (98-107); Estimated CRCL calculation 56 ml/min; Estimated Glomerular Filt Rate > 60; Glucose 115 mg/dL (65-105); Potassium 3.3 mmol/L (3.4-5.0); Sodium 137 mmol/L (137-145)
[2020-03-01] MEDS: amLODIPine BESYLATE 5 MG TABLET PO (08:52)
[2020-03-01] MEDS: POTASSIUM CHLORIDE 20 MEQ TABLET 40 MEQ PO (10:44)
--- NOTE | 2020-03-01 12:18 | PM.IMPN ---
Progress Note: A&P Assessment and Plan (1) Acute encephalopathy: Code(s): G93.40 - Encephalopathy, unspecified Status: Acute Assessment and Plan: The patient is improving but is still mildly confused. Today she is able to hold a normal conversation which is improved compared to yesterday -CT of the brain negative -ammonia and B12 normal -likely due to UTI and dehydration, continue with IV antibiotics -blood cultures no growth today -consider drug overdose initially -patient insists she did not ingest any chemicals, anion gap is normal -salicylate level normal, drug screen only positive for opioids -serotonin syndrome seems less likely since she is only on amitriptyline and CK level is normal with no rigidity on my exam -I think her event yesterday was likely due to having 1100 cc of urine in her bladder as well as a bladder infection -other etiologies which are unlikely could be: Carcinoid syndrome, pheochromocytoma and her recent flushing and symptoms could also be from a reaction to hydralazine? If she has any further symptoms these can be reexamined -consider brain MRI that the patient does not improve . (2) Abnormal urinalysis: Code(s): R82.90 - Unspecified abnormal findings in urine Status: Acute Assessment and Plan: -urine culture growing [id number] enterococcus species. Although this is low, the patient had significant confusion and urinary retention. I am going to continue antibiotics and transition to vancomycin. Will await final results and sensitivities (3) Acute renal failure: Qualifiers: Acute renal failure type: unspecified Qualified Code(s): N17.9 - Acute kidney failure, unspecified Code(s): N17.9 - Acute kidney failure, unspecified Status: Acute Assessment and Plan: Resolved -likely due to UTI and urinary retention -could also be due to lasix. This has been on hold. (4) Abnormal TSH: Code(s): R79.89 - Other specified abnormal findings of blood chemistry Status: Acute Assessment and Plan: For some reason TSH was repeated and was normal -T4 was checked and was normal (5) Hypertension: Qualifiers: Hypertension type: unspecified Qualified Code(s): I10 - Essential (primary) hypertension Code(s): I10 - Essential (primary) hypertension Status: Chronic Assessment and Plan: Last blood pressure 135/72 -patient was likely elevated yesterday due to urinary retention -continue home Norvasc -patient has no chest pain or headache at this time -could be from narcotic withdrawal? (6) Chronic narcotic use: Code(s): F11.90 - Opioid use, unspecified, uncomplicated Status: Chronic Assessment and Plan: Continue oxycodone at a lower dose -will likely need increased doses of this (7) Urinary retention: Code(s): R33.9 - Retention of urine, unspecified Status: Acute Assessment and Plan: Patient retained 1100 cc of urine yesterday and she was straight cathed. Overnight she had a postvoid residual of 600 so a Rodriguez catheter was placed. Will do a voiding trial in a few days after infection has been treated and patient improves Additional Plan Subjective Date/time seen: 03/01/20 12:18 Interval history: Pt is a 74-year-old female here for UTI, altered mental status and MORRIS. Patient was seen today and is little confused but overall able to hold a conversation. She states she does not remember any events yesterday. She is feeling much better and has no complaints of pain. She cannot tell me if she has ever had issues with urinating in the past. I spoke with the nurse who states that she continued to have urinary retention and after her initial straight cath, her postvoid residual was 600 so a Rodriguez catheter was placed. Today the patient denies chest pain, shortness of breath, fevers, chills, nausea or vomiting. Exam Narrative:
[2020-03-02] VITALS: PULSE 84
[2020-03-02 04:00] VITALS: PULSE 81
[2020-03-02 05:49] VITALS: BP 160/66; PULSE 77; RESP 18; TEMP 36.6; O2SAT 99
[2020-03-02 06:38] LABS: Basophils Absolute Auto 0.1 K/mm3 (0.0-0.1); Basophils Percent Auto 0.6 % (0.2-1.2); Eosinophils Percent Auto 0.2 % (0-4.4); Hematocrit 45.2 % (37.0-47.0); Hemoglobin 15.1 g/dL (12.0-15.0); Immature Granulocyte Absolute 0.04 K/mm3 (0.00-0.031); Immature Granulocyte Percent A 0.3 % (0-0.5); Lymphocytes Absolute Auto 2.28 K/mm3 (0.9-3.2); Lymphocytes Percent Auto 16.8 % (18.3-44.2); Mean Corpuscular HGB Conc 33.4 g/dl (32-36); Mean Corpuscular Hemoglobin 32.3 pg (26-34); Mean Corpuscular Volume 96.6 fl (80-100); Monocytes Absolute Auto 1.3 K/mm3 (0.1-0.6); Monocytes Percent Auto 9.7 % (2.6-8.5); Neutrophils Absolute Auto 9.8 K/mm3 (1.3-6.7); Neutrophils Percent Auto 72.4 % (45.5-73.1); Platelet Count Result 275 k/mm3 (150-375); Red Blood Count 4.68 M/mm3 (4.2-5.4); Red Cell Distribution Width 13.6 % (11.5-14.5); White Blood Count 13.6 K/mm3 (4.5-10.0)
[2020-03-02 08:00] VITALS: PULSE 77; PULSE 78; RESP 18; O2SAT 99
--- NOTE | 2020-03-02 08:38 | PM.IMPN ---
Progress Note: A&P Assessment and Plan (1) Acute encephalopathy: Code(s): G93.40 - Encephalopathy, unspecified Status: Acute Assessment and Plan: The patient is improving but is still mildly confused. -I spoke to the who states the patient is very sharp at her baseline and even debate Phillip pinto -CT of the brain negative -ammonia and B12 normal -likely due to UTI and dehydration, continue with IV antibiotics -blood cultures no growth today -consider drug overdose initially -patient insists she did not ingest any chemicals, anion gap is normal -salicylate level normal, drug screen only positive for opioids -serotonin syndrome seems less likely since she is only on amitriptyline and CK level is normal with no rigidity on my exam -worsened because of urinary retention, catheter will be removed and voiding trial will be started today -other etiologies which are unlikely could be: Carcinoid syndrome, pheochromocytoma and her recent flushing and symptoms could also be from a reaction to hydralazine? If she has any further symptoms these can be reexamined -will order brain MRI and consult Neurology since she still is mildly confused . (2) Abnormal urinalysis: Code(s): R82.90 - Unspecified abnormal findings in urine Status: Acute Assessment and Plan: urine culture growing [id number] enterococcus species. -Although this is low, the patient had significant confusion, leukocytosis, slight fever and urinary retention during her stay. - Will stop vancomycin and continue with ampicillin which is sensitive. (3) Acute renal failure: Qualifiers: Acute renal failure type: unspecified Qualified Code(s): N17.9 - Acute kidney failure, unspecified Code(s): N17.9 - Acute kidney failure, unspecified Status: Acute Assessment and Plan: Resolved -likely due to UTI and urinary retention -could also be due to lasix. This has been on hold. (4) Abnormal TSH: Code(s): R79.89 - Other specified abnormal findings of blood chemistry Status: Acute Assessment and Plan: For some reason TSH was repeated and was normal -T4 was checked and was normal (5) Hypertension: Qualifiers: Hypertension type: unspecified Qualified Code(s): I10 - Essential (primary) hypertension Code(s): I10 - Essential (primary) hypertension Status: Chronic Assessment and Plan: Last blood pressure 160/66 before her home medications -was more elevated at the beginning of her stay likely due to urinary retention -continue home Norvasc -patient has no chest pain or headache at this time -could also be from narcotic withdrawal? (6) Chronic narcotic use: Code(s): F11.90 - Opioid use, unspecified, uncomplicated Status: Chronic Assessment and Plan: Continue oxycodone at a lower dose -she has not had any oxycodone since she has been here in no signs withdraw -I spoke with the who states he will dispense the medication from now on (7) Urinary retention: Code(s): R33.9 - Retention of urine, unspecified Status: Acute Assessment and Plan: Patient retained 1100 cc of urine and a Rodriguez catheter was placed after retaining again after an initial straight cath -likely caused her MORRIS -will do voiding trial today. If she fails this, this will be replaced and she will need to follow-up with the urologist in 2 weeks after discharge Additional Plan Subjective Date/time seen: 03/02/20 08:38 Interval history: Pt is a 74-year-old female here for UTI, altered mental status and MORRIS. Patient was seen today and has no complaints. She states she is not any pain and has no issues. She says she is eating and drinking okay and working with physical therapy. She specifically denies chest pain, shortness of breath, fevers, chills, nausea, vomiting, leg swelling, abdominal pain or headaches. I spoke wit
[2020-03-02 09:04] LABS: Alanine Aminotransferase 20 U/L (4-35); Albumin Level 4.2 g/dL (3.5-5.1); Alkaline Phosphatase 60 U/L (38-126); Anion Gap 5 mmol/L (8-16); Aspartate Amino Transferase 31 U/L (14-36); Bilirubin,Total 0.5 mg/dL (0.2-1.3); Blood Urea Nitrogen 16 mg/dL (7-17); Carbon Dioxide 28 mmol/L (22-30); Chloride 107 mmol/L (98-107); Estimated CRCL calculation 66 ml/min; Estimated Glomerular Filt Rate > 60; Glucose 117 mg/dL (65-105); Potassium 3.7 mmol/L (3.4-5.0); Sodium 140 mmol/L (137-145)
[2020-03-02] MEDS: AMPICILLIN 1 GM/NS 50 ML 1 GM/50 ML BAG IVPB ×2 (10:16→15:59)
[2020-03-02] MEDS: ASPIRIN 81 MG CHEWABLE TABLET PO (10:16)
[2020-03-02] MEDS: amLODIPine BESYLATE 5 MG TABLET PO (10:16)
[2020-03-02 12:00] VITALS: BP 149/71; PULSE 91; RESP 14; TEMP 36.3; O2SAT 100
--- NOTE | 2020-03-02 16:13 | PC.NURSE ---
Urinary catheter removed at 1600.Encouraged pt to drink plenty of fluids and be sure to call when she felt urge to void.
[2020-03-02 22:00] VITALS: BP 160/73; PULSE 78; RESP 18; TEMP 36.8; O2SAT 99
[2020-03-03 05:40] VITALS: BP 143/68; PULSE 67; RESP 18; TEMP 36.6; O2SAT 98
[2020-03-03 07:02] LABS: Hematocrit 38.6 % (37.0-47.0); Hemoglobin 13.4 g/dL (12.0-15.0); Mean Corpuscular HGB Conc 34.7 g/dl (32-36); Mean Corpuscular Hemoglobin 32.8 pg (26-34); Mean Corpuscular Volume 94.4 fl (80-100); Mean Platelet Volume 9.7 fl (7.4-10.4); Platelet Count Result 269 k/mm3 (150-375); Red Blood Count 4.09 M/mm3 (4.2-5.4); Red Cell Distribution Width 13.3 % (11.5-14.5); White Blood Count 10.2 K/mm3 (4.5-10.0)
[2020-03-03 07:20] LABS: Anion Gap 6 mmol/L (8-16); Blood Urea Nitrogen 19 mg/dL (7-17); Calcium 9.4 mg/dL (8.4-10.2); Carbon Dioxide 26 mmol/L (22-30); Chloride 103 mmol/L (98-107); Estimated CRCL calculation 66 ml/min; Estimated Glomerular Filt Rate > 60; Glucose 95 mg/dL (65-105); Potassium 3.3 mmol/L (3.4-5.0); Sodium 135 mmol/L (137-145)
[2020-03-03 08:00] VITALS: PULSE 67; RESP 18; O2SAT 98
[2020-03-03] MEDS: ASPIRIN 81 MG CHEWABLE TABLET PO (08:37)
[2020-03-03] MEDS: POTASSIUM CHLORIDE 20 MEQ TABLET 40 MEQ PO (08:37)
[2020-03-03] MEDS: amLODIPine BESYLATE 5 MG TABLET PO (08:37)
[2020-03-03] MEDS: AMPICILLIN 1 GM/NS 50 ML 1 GM/50 ML BAG IVPB (08:44)
--- NOTE | 2020-03-03 10:27 | PM.DS ---
DS: Admitting Diagnosis Admitting Diagnosis Admitting Diagnosis: AMS DS: Discharge Diagnosis Discharge Diagnosis (1) Acute encephalopathy: Code(s): G93.40 - Encephalopathy, unspecified Status: Acute Assessment and Plan: Patient is back to baseline. The Son spoke with the pt on the phone and agrees she is back to her normal. -CT of the brain negative -ammonia and B12 normal -likely due to UTI, dehydration, narcotic overuse, and urinary retention -blood cultures no growth to date -patient insists she did not ingest any chemicals, anion gap is normal -salicylate level normal, drug screen only positive for opioids -serotonin syndrome seems less likely since she is only on amitriptyline and CK level is normal with no rigidity on my exam -Brain MRI neg for acute abnormality (2) UTI (urinary tract infection): Code(s): N39.0 - Urinary tract infection, site not specified Status: Acute Assessment and Plan: Urine culture growing [id number] Enterococcus -suspect true infection since patient had altered mental status as well as MORRIS and elevated white blood cell count -continue ampicillin outpatient (3) Acute renal failure: Qualifiers: Acute renal failure type: unspecified Qualified Code(s): N17.9 - Acute kidney failure, unspecified Code(s): N17.9 - Acute kidney failure, unspecified Status: Acute Assessment and Plan: Resolved -likely due to UTI and urinary retention -could also be due to lasix. This has been discontinued at discharge (4) Abnormal TSH: Code(s): R79.89 - Other specified abnormal findings of blood chemistry Status: Acute Assessment and Plan: For some reason TSH was repeated and was normal -T4 was checked and was normal (5) Hypertension: Qualifiers: Hypertension type: unspecified Qualified Code(s): I10 - Essential (primary) hypertension Code(s): I10 - Essential (primary) hypertension Status: Chronic Assessment and Plan: Last blood pressure 143/68 before her home medications -was more elevated at the beginning of her stay likely due to urinary retention -will increase Norvasc to 5 mg at discharge -patient has no chest pain or headache at this time (6) Chronic narcotic use: Code(s): F11.90 - Opioid use, unspecified, uncomplicated Status: Chronic Assessment and Plan: Continue oxycodone at home at a lower dose and p.r.n. -I spoke with the son and about the importance of NOT restarting her 40 mg of oxycodone b.i.d. when going home. They understand that tolerance is lower and since she has not utilized any oxycodone here, she may not need that much. They are going to use the oxycodone I have prescribed as needed for pain in the understand the patient has not had any complaints of pain while being hospitalized. There and follow up with Dr. Orozco office (7) Suspected 2019 novel coronavirus infection: Code(s): Z20.822 - Contact with and (suspected) exposure to COVID-19 Status: Acute Assessment and Plan: PCR negative (8) Urinary retention: Code(s): R33.9 - Retention of urine, unspecified Status: Acute Assessment and Plan: Resolved -Pt passed voiding trial and no longer needs a catheter DS: Summary Hospital Course Hospital Course: Patient is a 74-year-old female who presented to the emergency room for altered mental status. Vitals in the ER showed temperature 36.7? C, pulse 96, respiratory rate 20, blood pressure 167/90, pulse ox 98 air. Initial white blood cell count 15.2, hemoglobin 12.6, hematocrit 38.5, platelets 295. BMP showed MORRIS with creatinine at 2.1 with a BUN of 32. Lactic acid normal. UA suspicious for UTI. Drug screen positive for opioids and the patient uses oxycodone chronically and has a significant verified dose of 40 mg b.i.d. as well as p.r.n.. Head CT shows areas of prio
--- NOTE | 2020-03-03 11:07 | PCOTNOTE ---
Patient declined OT this AM due to fatigue from not sleeping last night. Patient to discharge today likely, if not, will continue plan of care tomorrow, 03/04/2020.
--- NOTE | 2020-03-29 09:17 | PC.NURSE ---
blood cx are negative
== END 2020-03-03 12:15 | disposition home health service (06) | DRG 690 ==
LOC: ANHED 02-29 00:20 → ANH3MEDSUR 02-29 08:33
PROVIDERS: Admitting Provider Family Medicine; Emergency Provider Emergency Medicine; PCP Family Medicine Adolescent Medicine; Visit Provider Physician Assistant
DX: N39.0 Urinary tract infection, site not specified (principal); F11.93 Opioid use, unspecified with withdrawal; N17.9 Acute kidney failure, unspecified; G93.40 Encephalopathy, unspecified; R41.0 Disorientation, unspecified; F17.210 Nicotine dependence, cigarettes, uncomplicated; J44.9 Chronic obstructive pulmonary disease, unspecified; I10 Essential (primary) hypertension; Z20.822 Contact with and (suspected) exposure to COVID-19; B95.2 Enterococcus as the cause of diseases classified elsewhere; E86.0 Dehydration
CPT/HCPCS: 36415; 36600; 70450; 70551; 71045; 74176; 80048; 80053; 80076; 80307; 81001; 82140; 82550; 82607; 82746; 82805; 82948; 83605; 84439; 84443; 84484; 85025; 85027; 85610; 85730; 86140; 87040; 87077; 87086; 87088; 87186; 93005; 96361; 96374; 97110; 97116; 97161; 97165; 99285; A9270; C9803; J0290; J0360; J0696; J2060; J3370; J7030; J7120; U0003; U0005

== ENCOUNTER 2020-03-29 12:56 | Emergency (ER) | payer MEDICARE, OTHER, SELFPAY ==
--- NOTE | ~2020-03-29 | XR_ITS ---
EXAMINATION: XR chest 2V DATE: 03/29/2020 13:31 INDICATION: Shortness of breath TECHNIQUE: PA and lateral views of the chest are obtained. COMPARISON: 02/28/2019 FINDINGS: The lungs are free of acute opacities. There is no pleural effusion or pneumothorax. The ca rdiomediastinal silhouette is normal. Again noted are changes of anterior and posterior fusion proced ure at the cervicothoracic junction and posterior fusion in the lumbar spine. There are surgical clip s in the upper abdomen as well. A T12 burst fracture is noted. IMPRESSION: 1. No acute cardiopulmonary abnormality. Reviewed, dictated and finalized at location A. [employer]
[2020-03-29 13:35] VITALS: BP 177/80; PULSE 94; RESP 28; TEMP 36.4; O2SAT 98
--- NOTE | 2020-03-29 13:36 | ED.SOB ---
HPI - SOB/Dyspnea General Chief Complaint: Shortness of Breath/Dyspnea Stated Complaint: TROUBLE BREATHING/OUT OF PAIN MEDS Time Seen by Provider: 03/29/20 13:15 Source: patient Mode of arrival: ambulatory Limitations: no limitations History of Present Illness HPI Narrative: Judie Cabrera is a 74 yo female with a PMH of HTN, CPOD chronic pain, who comes [facility] with complaints of shortness of breath and need for pain medication. Patient is a chronically ill-appearing thin femalePatient is currently has an active prescription for OxyContin and oxycodone and is also on a blood pressure medication water pill and Breo. Patient denies that she has COPD or her particular shortness of breath although her respiratory rate is 28. Blood pressure is currently elevated. Related Data Home Medications Medication Instructions Recorded Confirmed fluticasone furoate-vilanterol INHALATION 03/29/20 03/29/20 [Breo Ellipta] furosemide 40 mg PO DAILY 03/29/20 03/29/20 oxycodone [OxyContin] 40 mg PO Q12H 03/29/20 03/29/20 oxycodone [OxyContin] 80 mg PO Q12H 03/29/20 03/29/20 trazodone 50 mg PO HS 03/29/20 03/29/20 Allergies Allergy/AdvReac Type Severity Reaction Status Date / Time CODEINE (Generic Allergy) Allergy Unknown Y Uncoded 03/29/20 13:27 Review of Systems Review of Systems: Narrative: CONSTITUTIONAL: Denies fever, chills, sweats. EYES: Denies visual changes, redness, discharge. ENT: Denies rhinorrhea, congestion, sore throat, otalgia. CARDIOVASCULAR: Denies chest pain, palpitations, edema. RESPIRATORY has dyspnea, wheezing, no cough GASTROINTESTINAL: Denies abdominal pain, nausea, vomiting, diarrhea. GENITOURINARY: Denies dysuria, hematuria, abnormal discharge SKIN: Denies rash or itching. NEUROLOGIC: Denies numbness, or focal weakness. PSYCHIATRIC: Denies anxiety or depression. [facility] Past Medical History Medical History Arthritis Chronic narcotic use COPD (chronic obstructive pulmonary disease) Diverticulosis Essential hypertension, benign History of peptic ulcer Tobacco abuse Surgical History Surgical History Hx of dilation and curettage 2001 Hx of spinal surgery 2 cervical (front) and 1 cervical posterior 2 lumbar surgeries S/P appy 1956 S/P cholecystectomy 1970 Family History Family History Other Lung cancer Social History Social History Social History: Home with . Worked at [employer]. Hx of tobacco use. Full code. Smokes 3-4 cig/day. No alcohol. would be making medical decision for her if she is not able. Smoking packs per day: 0.25 Smoking cigarettes per day: 5.0 Years smoked: 10 Smoking pack-years: 2.50 Smoking status: Smoker, status unknown Alcohol intake: never Substance use: never Gender identity (if verbalized by the patient): Female Spiritual care concerns: No Comments At time of signature, I agree with nursing past medical, surgical, social and family history. There is no relevant family history pertinent to the presenting complaint. Exam Narrative: Exam Narrative: GENERAL: This is a chronically ill-appearing thin patient, in moderate distress. Appears weak HEAD: normocephalic, atraumatic. EYES: Sclera clear/white. Vision is grossly intact. EARS: External ears normal, hearing grossly intact ENT: No nasal discharge, nares without redness, no rhinorrhea. THROAT: Mucous membranes dry NECK: Neck supple, non-tender CARDIOVASCULAR: Regular rate and rhythm without murmurs, gallops, or rubs. RESPIRATORY: Bilateral lungs are wheezing and rhonchi, her respiratory rate is 28, breathing with open mouth GASTROINTESTINAL: Abdomen soft, SKIN: warm, intact with no suspicious lesions or rash, good texture and turgor.
[2020-03-29 13:41] VITALS: BP 177/80; PULSE 94; RESP 28; TEMP 36.4; O2SAT 98
== END 2020-03-29 14:00 | disposition short-term general hospital (02) ==
PROVIDERS: Emergency Provider Nurse Practitioner; PCP Family Medicine Adolescent Medicine
DX: J44.1 Chronic obstructive pulmonary disease with (acute) exacerbation (principal); F11.90 Opioid use, unspecified, uncomplicated; F17.210 Nicotine dependence, cigarettes, uncomplicated; M19.90 Unspecified osteoarthritis, unspecified site; I10 Essential (primary) hypertension
CPT/HCPCS: 71046; 99213; G0463

== ENCOUNTER 2020-04-23 15:12 | Inpatient (IN) | payer MEDICARE, OTHER, SELFPAY ==
--- NOTE | ~2020-04-23 | CT_ITS ---
EXAMINATION: CT brain wo con DATE: 04/23/2020 18:05 INDICATION: Altered mental state TECHNIQUE: Computed tomography (CT) of the head was performed without intravenous contrast. The mA wa s adjusted according to patient size. Iterative reconstruction technique was employed. Exam dose: 60 5.33 mGy-cm total exam DLP. COMPARISON: 02/28/2020 CT brain 03/02/2020 MRI brain FINDINGS: Chronic right basal ganglia and internal capsule lacunar infarcts, stable since 12/28/2020. Chronic right cerebellar hemispheric infarct. There is nonspecific diminished attenuation of cerebral white matter, likely due to chronic small ves yessica ischemic changes. Prominent bilateral carotid siphon internal carotid artery calcifications. There is moderate central and cortical cerebral and cerebellar atrophy. No intracranial mass lesion or hemorrhage, midline shift or mass effect effect. No subdural or epidur al hematoma is detected. No fracture or bone destruction of the cranial vault. Included paranasal sinuses and mastoid air cell s are normally developed and aerated. 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 Reviewed, dictated and finalized at location A. IMPRESSION: Chronic right basal ganglia and internal capsule and right cerebel lar infarcts Cerebral atherosclerosis and chronic small vessel ischemic changes of the cereb ral white matter No acute intracranial finding
--- NOTE | ~2020-04-23 | XR_ITS ---
XR chest 1V DATE: 04/23/2020 18:15 INDICATION: Altered mental state TECHNIQUE: AP chest COMPARISON: March 29, 2020 PA and lateral chest FINDINGS: Normal heart size. No hilar or mediastinal enlargement. Mild aortic unfolding. No pulmonary infiltrate or consolidation, pleural effusion or pulmonary vascular congestion or pneumo thorax. Diffuse osteopenia. Postoperative changes of left and right upper quadrant abdomen. Status post surgical fusion of the ce rvical and lumbar spine. IMPRESSION: No active cardiopulmonary disease Reviewed, dictated and finalized at location A.
--- NOTE | ~2020-04-23 | XR_ITS ---
XR hip RT 2V w AP pelvis DATE: 04/23/2020 18:15 INDICATION: Fall. Right hip pain. TECHNIQUE: AP pelvis. AP and crosstable lateral views of right hip COMPARISON: None FINDINGS: Status post posterior lumbar spinal fusion from L2 to L5. Diffuse osteopenia. There bilateral acute pelvic fractures including at the right acetabulum, bilateral pubic bones. Alignment appears intact at the pubic symphysis and sacroiliac joints. No fracture or dislocation of the right hip is evident. IMPRESSION: Bilateral acute pelvic fractures, including right acetabulum and bilateral pubic; conside r CT pelvis for more definitive evaluation Reviewed, dictated and finalized at location A. IMPRESSION: Bilateral acute pelvic fractures, including right acetabulum and bi lateral pubic; consider CT pelvis for more definitive evaluation
--- NOTE | ~2020-04-23 | CT_ITS ---
EXAMINATION: CT pelvis wo con DATE: 04/23/2020 20:54 INDICATION: Pelvic fractures. Fall. Right hip pain. TECHNIQUE: Computed tomography (CT) of the pelvis was performed without intravenous contrast. Automat ed exposure control and iterative reconstruction technique were employed. Exam dose: 110.00 mGy-cm t otal exam DLP. COMPARISON: 04/23/2020 right hip 03/01/2020 CT abdomen pelvis FINDINGS: There is acute fracture of the anterior articular pillar of the right acetabulum. Bilateral pubic fractures at the pubic symphysis. Bilateral inferior pubic ramus fractures, displaced on the right. There is a recent fracture at the right sacral ala. Postoperative changes noted in the right lower quadrant. There is a prominent of fecal material in th e colon. Status post posterior lumbar spinal surgical fusion. Diffuse osteopenia. IMPRESSION: Right sacral ala and bilateral pelvic fractures, including right anterior articular acet abular pillar, bilateral pubic bones and inferior pubic rami Reviewed, dictated and finalized at [facility]. Reviewed, dictated and finalized at location A. IMPRESSION: Right sacral ala and bilateral pelvic fractures, including right a nterior articular acetabular pillar, bilateral pubic bones and inferior pubic r ami
--- NOTE | ~2020-04-23 | US_ITS ---
EXAMINATION: US abdomen limited EXAM DATE: 04/25/2020 09:56 INDICATION: Transaminitis. TECHNIQUE: Multiple grayscale and Doppler images of the abdomen right upper quadrant were obtained (bettye y a technologist who performed the scan) and subsequently reviewed. Correlation is made to CT 03/01/19. FINDINGS: The pancreatic head and body are normal in appearance. The pancreatic tail is not visualized. The l iver has normal echogenicity and contour. There are no focal liver lesions identified. Portal ve nous flow was seen in the hepatopedal, normal direction and has normal Doppler waveform. No right-si ded hydronephrosis. Common bile duct measures 12 mm which is considered abnormally dilated, however this is not uncommon in patients who have had cholecystectomy. There is also mild intrahepatic biliary duct dilation. IMPRESSION: 1. Biliary dilation could be result of cholecystectomy; If there is elevated bilirubin, consider MRC P without and with contrast. 2. Sonographically unremarkable liver. Reviewed, dictated and finalized at location A. IMPRESSION: 1. Biliary dilation could be result of cholecystectomy; If there is elevated b ilirubin, consider MRCP without and with contrast. 2. Sonographically unremarkable liver.
[2020-04-23 15:24] VITALS: BP 153/73; PULSE 89; RESP 16; TEMP 36.9; O2SAT 100
[2020-04-23 17:20] VITALS: BP 179/80; PULSE 76; RESP 19; O2SAT 99
--- NOTE | 2020-04-23 18:05 | ED.GENADULT ---
HPI - General Adult General Chief complaint: Fall Stated complaint: right hip pain, fall 1 month ago Time Seen by Provider: 04/23/20 17:28 Source: patient and family History of Present Illness HPI narrative: Patient is a 74 y/o female complaining of right hip pain. Her son states that she fell last week. She is scheduled to outpatient xray. However, her son found her somewhat confused and brought her for further evaluation. She has not been able to walk for the last few days. She is normally able to ambulate with a walker. Related Data Home Medications Medication Instructions Recorded Confirmed fluticasone furoate-vilanterol 25 inh INHALATION PRN PRN 03/29/20 04/24/20 [Breo Ellipta] trazodone 50 mg PO HS 03/29/20 04/24/20 Allergies Allergy/AdvReac Type Severity Reaction Status Date / Time codeine Allergy Unknown Unknown Verified 04/24/20 04:12 Review of Systems Constitutional: Constitutional: Denies chills, Denies fever(s), Denies headache(s) and Denies weakness Eyes: Eyes: Denies blurry vision ENT: Denies headache(s) and Denies neck pain Cardiovascular: Cardiovascular: Denies chest pain and Denies dyspnea Respiratory: Respiratory: Denies cough and Denies dyspnea Gastrointestinal: Gastrointestinal: Denies abdominal pain, Denies diarrhea, Denies nausea and Denies vomiting Genitourinary: Genitourinary: Denies hematuria and Denies dysuria Musculoskeletal: Musculoskeletal: Denies back pain, Reports arthralgias (right hip pain) and Denies neck pain Neurologic: Reports confusion, Denies headache(s) and Denies weakness [facility] Past Medical History Medical History Arthritis Chronic narcotic use COPD (chronic obstructive pulmonary disease) Diverticulosis Essential hypertension, benign History of peptic ulcer Tobacco abuse Surgical History Surgical History Hx of dilation and curettage 2001 Hx of spinal surgery 2 cervical (front) and 1 cervical posterior 2 lumbar surgeries S/P appy 195 S/P cholecystectomy 1971 Family History Family History Father Lung cancer Mother Lung cancer Sibling Cancer of brain Sibling Cancer of brain Other Cancer of kidney Cerebrovascular accident Social History Social History Social History: Home with . Worked at [employer]. Hx of tobacco use. Full code. Smokes 3-4 cig/day. No alcohol. would be making medical decision for her if she is not able. Smoking packs per day: 0.25 Smoking cigarettes per day: 5.0 Years smoked: 30 Smoking pack-years: 7.50 Smoking status: Former smoker Tobacco type: cigarettes Second hand tobacco smoke exposure: No Smoking end date: 03/25/20 Alcohol intake: never Substance use: never Gender identity (if verbalized by the patient): Female Spiritual care concerns: No Exam Const: General: no acute distress and well developed Orientation/consciousness: oriented to person, oriented to place, oriented to time and patient oriented x3 HENMT: Head: normocephalic Ears: external ears normal General nose exam: Normal external nose present Eyes: General: appearance normal, both eyes and all related structures Conjunctivae: conjunctivae normal Neck: Neck: normal visual inspection and full ROM Chest: Chest palpation & inspection: normal inspection of the chest and no tenderness Resp: Effort & Inspection: normal respiratory effort Auscultation: clear to auscultation bilaterally Cardio: Rate: regular rate Rhythm: regular rhythm GI: GI Palp: No abdominal tenderness and Yes Soft to palpation Skin: General skin exam: normal color and turgor normal Neuro: General: oriented to person, oriented to place, oriented to time and patient oriented x3 Cognition (Neuro): normal
[2020-04-23 18:22] LABS: Basophils Absolute Auto 0.1 K/mm3 (0.0-0.1); Basophils Percent Auto 1.2 % (0.2-1.2); Eosinophils Absolute Auto 0.1 K/mm3 (0-0.3); Eosinophils Percent Auto 0.7 % (0-4.4); Hemoglobin 13.7 g/dL (12.0-15.0); Immature Granulocyte Absolute 0.02 K/mm3 (0.00-0.031); Immature Granulocyte Percent A 0.3 % (0-0.5); Lymphocytes Absolute Auto 1.42 K/mm3 (0.9-3.2); Lymphocytes Percent Auto 20.7 % (18.3-44.2); Mean Corpuscular HGB Conc 32.6 g/dl (32-36); Mean Corpuscular Hemoglobin 32.5 pg (26-34); Mean Corpuscular Volume 99.8 fl (80-100); Monocytes Absolute Auto 0.4 K/mm3 (0.1-0.6); Monocytes Percent Auto 5.5 % (2.6-8.5); Neutrophils Absolute Auto 4.9 K/mm3 (1.3-6.7); Neutrophils Percent Auto 71.6 % (45.5-73.1); Platelet Count Result 549 k/mm3 (150-375); Red Blood Count 4.21 M/mm3 (4.2-5.4); White Blood Count 6.9 K/mm3 (4.5-10.0)
[2020-04-23 18:33] LABS: Alanine Aminotransferase 100 U/L (4-35); Albumin Level 3.7 g/dL (3.5-5.1); Alkaline Phosphatase 308 U/L (38-126); Anion Gap 4 mmol/L (8-16); Aspartate Amino Transferase 215 U/L (14-36); Bilirubin,Total 0.3 mg/dL (0.2-1.3); Blood Urea Nitrogen 16 mg/dL (7-17); Calcium 8.8 mg/dL (8.4-10.2); Carbon Dioxide 30 mmol/L (22-30); Chloride 104 mmol/L (98-107); Estimated CRCL calculation 40 ml/min; Estimated Glomerular Filt Rate > 60; Glucose 114 mg/dL (65-105); Potassium 3.8 mmol/L (3.4-5.0); Sodium 138 mmol/L (137-145)
[2020-04-23 18:35] LABS: Add Urine Microscopic? YES; Appearance Urine Clear (Clear); Bilirubin Urine Negative (Negative); Blood Urine Negative (Negative); Color Urine Yellow (Yellow); Glucose Urine UA Negative (Negative); Ketones Urine Negative (Negative); Leukocyte Esterase Ur Negative LEU/UL (Negative); Mucus Urine Rare /lpf; Nitrate Urine Negative (Negative); Protein Urine Negative (Negative); RBC Urine 0-2 /hpf (0-2); Specific Grav Ur 1.016 (1.001-1.035); Squamous Epithelial Cell Urine Few /hpf (Few); Urobilinogen Urine Negative mg/dL (<2.0); WBC Urine 0-3 /hpf
[2020-04-23 19:04] VITALS: BP 141/87; PULSE 68; RESP 17; O2SAT 99
[2020-04-23 21:15] VITALS: BP 139/75; PULSE 71; RESP 16; O2SAT 99
[2020-04-23 23:05] VITALS: BP 127/89; PULSE 60; RESP 16; O2SAT 100
[2020-04-24] VITALS (7 sets, daily range): BP systolic 130–148; BP diastolic 56–80; PULSE 60–75; RESP 16–18; TEMP 36.1–36.4; O2SAT 96–99; BMI 15.8
--- NOTE | 2020-04-24 00:16 | PM.IMHP ---
H&P: HPI History of Present Illness Date/Time: 04/23/20 23:16 Chief Complaint: Right pelvic tenderness++ Narrative: This is a 74-year-old female with known history of chronic hypertension, COPD, as well as chronic narcotic use who presented to the hospital with a complaint of right hip pain and ambulatory dysfunction over the past few days. Apparently the patient states that she fell a month ago and since then has had worsening hip pain and difficulty ambulating. She cannot give me any specific details regarding how she fell about a month ago but believes that she did not lose consciousness. Pelvic CT was obtained in the emergency room which demonstrated a right sacral ala and bilateral pelvic fractures, including right anterior articular acetabular pillar, bilateral pubic bones and inferior pubic rami. ER provider has consulted orthopedic surgeon, Dr. Linda who has asked that we admit the patient to the hospital and he will evaluate her in the morning. Patient denies any other new symptoms at this time. She does report having chronic diarrhea and does use Imodium chronically. Review of Systems Review of Systems: All systems reviewed & are unremarkable except as noted in HPI and below PMFSH Past Medical History Medical History Arthritis Chronic narcotic use COPD (chronic obstructive pulmonary disease) Diverticulosis Essential hypertension, benign History of peptic ulcer Tobacco abuse Surgical History Surgical History Hx of dilation and curettage 2001 Hx of spinal surgery 2 cervical (front) and 1 cervical posterior 2 lumbar surgeries S/P appy 1955 S/P cholecystectomy 1970 Family History Family History Father Lung cancer Mother Lung cancer Sibling Cancer of brain Sibling Cancer of brain Other Cancer of kidney Cerebrovascular accident Social History Social History Social History: Home with . Worked at [employer]. Hx of tobacco use. Full code. Smokes 3-4 cig/day. No alcohol. would be making medical decision for her if she is not able. Smoking packs per day: 0.25 Smoking cigarettes per day: 5.0 Years smoked: 30 Smoking pack-years: 7.50 Smoking status: Former smoker Tobacco type: cigarettes Second hand tobacco smoke exposure: No Smoking end date: 03/25/20 Alcohol intake: never Substance use: never Gender identity (if verbalized by the patient): Female Sexual Orientation (if Verbalized by the Patient): Straight or Heterosexual Spiritual care concerns: No Meds Home Medications and Allergies Home Medications Medication Instructions Recorded Confirmed Type amlodipine [Norvasc] 5 mg PO QAM #30 tablet 03/03/20 04/24/20 Rx fluticasone furoate-vilanterol 25 inh INHALATION PRN PRN 03/29/20 04/24/20 History [Breo Ellipta] furosemide 40 mg PO DAILY 03/29/20 04/24/20 History oxycodone [OxyContin] 40 mg PO Q12H 03/29/20 04/24/20 History oxycodone [OxyContin] 80 mg PO Q12H 03/29/20 04/24/20 History trazodone 50 mg PO HS 03/29/20 04/24/20 History Allergies Allergy/AdvReac Type Severity Reaction Status Date / Time CODEINE (Generic Allergy) Allergy Unknown Y Uncoded 03/29/20 13:27 Vital Signs Vital Signs - 24 hr 04/23/20 15:24 04/23/20 17:20 04/23/20 19:04 Temperature 36.9 C Pulse Rate 89 76 68 Respiratory Rate 16 19 17 Blood Pressure 153/73 H 179/80 H 141/87 H Pulse Oximetry 100 99 99 04/23/20 21:15 04/23/20 23:05 Temperature Pulse Rate 71 60 Respiratory Rate 16 16 Blood Pressure 139/75 127/89 Pulse Oximetry 99 100 Exam Const: General: cooperative, alert and awake Nutritional Appearance: well nourished Orientation/consciousness: patient oriented x3 HENMT: Head: normal to inspection General nose
[2020-04-24] MEDS: MELATONIN 3 MG TABLET PO (01:47)
[2020-04-24] MEDS: HYDROmorphone HCL INJ (*CRX) 1 MG/ML SYR 0.5 MG IV PUSH ×7 (01:48→23:40)
[2020-04-24 06:23] LABS: Basophils Absolute Auto 0.1 K/mm3 (0.0-0.1); Basophils Percent Auto 1.5 % (0.2-1.2); Eosinophils Absolute Auto 0.3 K/mm3 (0-0.3); Eosinophils Percent Auto 3.2 % (0-4.4); Hematocrit 37.5 % (37.0-47.0); Hemoglobin 12.1 g/dL (12.0-15.0); Immature Granulocyte Absolute 0.03 K/mm3 (0.00-0.031); Immature Granulocyte Percent A 0.4 % (0-0.5); Lymphocytes Absolute Auto 1.45 K/mm3 (0.9-3.2); Lymphocytes Percent Auto 17.9 % (18.3-44.2); Mean Corpuscular HGB Conc 32.3 g/dl (32-36); Mean Corpuscular Hemoglobin 31.5 pg (26-34); Mean Corpuscular Volume 97.7 fl (80-100); Mean Platelet Volume 8.8 fl (7.4-10.4); Monocytes Absolute Auto 0.5 K/mm3 (0.1-0.6); Monocytes Percent Auto 5.5 % (2.6-8.5); Neutrophils Absolute Auto 5.8 K/mm3 (1.3-6.7); Neutrophils Percent Auto 71.5 % (45.5-73.1); Platelet Count Result 461 k/mm3 (150-375); Red Blood Count 3.84 M/mm3 (4.2-5.4); White Blood Count 8.1 K/mm3 (4.5-10.0)
[2020-04-24 06:35] LABS: Alanine Aminotransferase 195 U/L (4-35); Albumin Level 2.7 g/dL (3.5-5.1); Alkaline Phosphatase 249 U/L (38-126); Anion Gap 0 mmol/L (8-16); Aspartate Amino Transferase 272 U/L (14-36); Bilirubin,Total 0.4 mg/dL (0.2-1.3); Blood Urea Nitrogen 16 mg/dL (7-17); Calcium 7.8 mg/dL (8.4-10.2); Carbon Dioxide 29 mmol/L (22-30); Chloride 106 mmol/L (98-107); Estimated CRCL calculation 42 ml/min; Estimated Glomerular Filt Rate > 60; Glucose 81 mg/dL (65-105); Potassium 4.1 mmol/L (3.4-5.0); Sodium 135 mmol/L (137-145)
[2020-04-24] MEDS: HYDROcodone/acetaminophen (*CRX) 5-325 MG TABLET 1 TAB PO (07:31)
[2020-04-24] MEDS: amLODIPine BESYLATE 5 MG TABLET PO (07:32)
[2020-04-24] MEDS: HYDROcodone/acetaminophen (*CRX) 7.5-325 MG TABLET 1 TAB PO ×3 (11:31→22:10)
--- NOTE | 2020-04-24 11:58 | PCNSR ---
On 04/24/20, the student, Lashawn Eason, provided care and completed [facility] documentation on this patient. I have reviewed the student's documentation and agree with the findings.
--- NOTE | 2020-04-24 12:49 | PM.IMPN ---
Progress Note: A&P Assessment and Plan (1) Pelvic fracture: Code(s): S32.9XXA - Fracture of unspecified parts of lumbosacral spine and pelvis, initial encounter for closed fracture Status: Acute Assessment and Plan: Patient presents with ambulatory dysfunction and CARLA hip pain after a fall last week. CT pelvis shows multiple pelvic fractures - appreciate Dr Eagle's recommendations. Continue pain control. (2) Transaminitis: Code(s): R74.01 - Elevation of levels of liver transaminase levels Status: Acute Assessment and Plan: Denies abdominal pain. Check hepatitis panel in AM. Consider NPO at midnight for RUQ ultrasound in the AM. (3) COPD (chronic obstructive pulmonary disease): Qualifiers: COPD type: COPD with acute exacerbation Qualified Code(s): J44.1 - Chronic obstructive pulmonary disease with (acute) exacerbation Code(s): J44.9 - Chronic obstructive pulmonary disease, unspecified Status: Chronic Assessment and Plan: No acute respiratory distress. Continue her home Breo Ellipta, add albuterol PRN. (4) Essential hypertension, benign: Code(s): I10 - Essential (primary) hypertension Status: Chronic Assessment and Plan: Last , Continue amlodipine. Monitor BP and adjust treatment as needed. (5) Chronic narcotic use: Code(s): F11.90 - Opioid use, unspecified, uncomplicated Status: Chronic Assessment and Plan: Patient notes long-standing history of chronic back pain, had previously been on pretty high doses of oxycontin however she tells me she has not taken it in a few months due to insurance not covering it any longer. Continue pain control with tylenol, norco and dilaudid for now. (6) Tobacco dependence: Code(s): F17.200 - Nicotine dependence, unspecified, uncomplicated Status: Chronic Assessment and Plan: The patient was counseled on tobacco cessation. Subjective Date/time seen: 04/24/20 12:30 Interval history: Ms. Cabrera is a 74yo F admitted for ambulatory dysfunction with multiple fractures of the pelvis. She describes long-standing history of back pain with several surgeries to back and neck in the past. She describes CARLA hip pain R>L which she rates 10/10 while resting in bed at present. She denies chest pain or shortness of breath. Denies nausea or vomiting. Review of Systems Review of Systems: All systems reviewed & are unremarkable except as noted in HPI and below Exam Narrative: Exam Narrative: General: Frail female resting supine in bed, anxious. HEENT: Normocephalic, EOMI, oral mucosa tacky. Cardiovascular: Rate and rhythm are regular. Respiratory: Slight expiratory wheezing CARLA. Respirations even and non-labored. Tolerating room air. Abdomen: Soft, non-tender, non-distended, bowel sounds present. Extremities: Peripheral pulses intact. No edema. Able to wiggle toes CARLA. Neuro: No focal neurological deficits. Speech is clear. Objective Data Vital Signs Vital Signs: Last Vital Signs Temp 97.5 F L 04/24/20 04:00 Pulse 60 04/24/20 04:00 Resp 16 04/24/20 04:00 BP 148/69 H 04/24/20 04:00 Pulse Ox 99 04/24/20 05:18 Intake/Output Intake/Output: Intake & Output 04/21/20 04/22/20 04/23/20 04/24/20 23:59 23:59 23:59 23:59 Intake Total 290 Output Total 1000 Balance -710 Meds/Results Medications: Active Medications Generic Name Dose Route Start Last Admin Trade Name Freq PRN Reason Stop Dose Admin Acetaminophen 650 mg 04/23/20 21:19 Acetaminophen 325 Mg Tablet PO Q4H PRN Mild Pain (1-3) or Fever Hydrocodone Bitart/Acetaminophen 1 tab 04/24/20 10:29
--- NOTE | 2020-04-24 16:53 | PM.CNOR ---
Assessment and Plan Assessment and plan (1) Bilateral pubic rami fractures: Qualifiers: Encounter type: initial encounter Fracture type: closed Qualified Code(s): S32.591A - Other specified fracture of right pubis, initial encounter for closed fracture; S32.592A - Other specified fracture of left pubis, initial encounter for closed fracture Code(s): S32.591A - Other specified fracture of right pubis, initial encounter for closed fracture; S32.592A - Other specified fracture of left pubis, initial encounter for closed fracture Status: Acute (2) Right acetabular fracture: Qualifiers: Encounter type: initial encounter Sublocation of acetabulum: anterior column Fracture type: closed Fracture alignment: nondisplaced Qualified Code(s): S32.434A - Nondisplaced fracture of anterior column [iliopubic] of right acetabulum, initial encounter for closed fracture Code(s): S32.401A - Unspecified fracture of right acetabulum, initial encounter for closed fracture Status: Acute (3) Sacral fracture, closed: Qualifiers: Encounter type: initial encounter Fracture alignment: minimally displaced Code(s): S32.10XA - Unspecified fracture of sacrum, initial encounter for closed fracture Status: Acute Additional Plan DANICA WAS ADMITTED FOR MULTIPLE FALLS DUE TO A BALANCE PROBLEM AND NOW SHE HAS SUSTAINED B PUBIC RAMI FRACTURES RIGHT ACETABULUM FACTURE AND SACRAL ALA FRACTURE. FRACTURES ARE IN GOOD POSITION. HISTORY, EXAM AND RADIOGRAPHS REVIEWED WITH THE PATIENT. REFERRING PHYSICIAN RECORDS AND IMAGES REVIEWED. CONDITION, NATURE, ETIOLOGY AND COURSE OF NATURAL HISTORY REVIEWED. CONSERVATIVE AND OPERATIVE TREATMENT OPTIONS REVIEWED WELL THE RISKS AND BENEFITS OF EACH. RECOMMEND NON SURGICAL TREATMENT WITH PROTECTED WEIGHT BEARING ON THE RIGHT SIDE. SHE MAY BE WEIGHT BEARING TOLERATED ON THE LEFT SIDE. PAIN CONTROL MAY BE AN ISSUE WITH THIS PATIENT DUE TO HER CHRONIC LOW BACK AND NECK PAIN AND HER USE OF ORAL NARCOTICS ON A DAILY BASIS. SHE WILL REQUIRE REHAB WELL. WE WILL TRY TO GET HER UP IN BED TO HAVE DINNER TODAY THEN TRY TO GET HER IN A CHAIR WITH PT IN THE AM. SHE WILL REQUIRE AT LEAST 6 TO 8 WEEKS OF NON WEIGHT BEARING ON HER RIGHT LOWER EXTREMITY. WILL FOLLOW WHILE ADMITTED. History of Present Illness HPI Consult date: 04/24/20 Consult reason: fracture Chief complaint: pelvic fracture Narrative: DANICA IS ADMITTED AND CONSULT WAS REQUESTED FOR BILATERAL PUBIC RAMI FRACTURES, RIGHT ACETABULAR FRACTURE AND SACRAL FRACTURES. SHE HAS SEVERE PAIN WITH MOVEMENT. SHE FELL ON NUMEROUS OCCASIONS THIS WEEK DUE TO A BALANCE PROBLEM THAT BEGAN AFTER HER CERVICAL FUSION. SHE CURRENTLY DENIES ANY LOC, OR ANY NEW BACK OR NECK PAIN. SHE DOES C/O BILATERAL HIP PAIN RIGHT GREATER THAN LEFT. SHE DENIES ANY OTHER LOWER EXTREMITY PAIN AND ANY UPPER EXTREMITY PAIN. Review of Systems Review of Systems: All systems reviewed & are unremarkable except as noted in HPI and below PMFSH Past Medical History Medical History Arthritis Chronic narcotic use COPD (chronic obstructive pulmonary disease) Diverticulosis Essential hypertension, benign History of peptic ulcer Tobacco abuse Surgical History Surgical History Hx of dilation and curettage 2001 Hx of spinal surgery 2 cervical (front) and 1 cervical posterior 2 lumbar surgeries S/P appy 1956 S/P cholecystectomy 1971 Family History Family History Father Lung cancer Mother Lung cancer Sibling Cancer of brain Sibling Cancer of brain Other Cancer of kidney Cerebrovascular accident Social History Social History Social History: Home with . Worked at [employer]. Hx of tobacco use.
[2020-04-24] MEDS: KETOROLAC 15 MG/ML VIAL (*BKC) IV PUSH ×2 (17:03→22:32)
[2020-04-24] MEDS: traZODone HCL 50 MG TABLET PO (22:10)
[2020-04-25] MEDS: HYDROcodone/acetaminophen (*CRX) 7.5-325 MG TABLET 1 TAB PO ×4 (01:59→21:02)
[2020-04-25] MEDS: HYDROmorphone HCL INJ (*CRX) 1 MG/ML SYR 0.5 MG IV PUSH ×3 (02:50→08:34)
[2020-04-25] MEDS: KETOROLAC 15 MG/ML VIAL (*BKC) IV PUSH ×2 (04:47→13:16)
[2020-04-25 06:00] VITALS: BP 97/66; PULSE 62; RESP 18; TEMP 36.2; O2SAT 95
[2020-04-25 06:28] LABS: Alanine Aminotransferase 455 U/L (4-35); Albumin Level 2.6 g/dL (3.5-5.1); Alkaline Phosphatase 261 U/L (38-126); Anion Gap 2 mmol/L (8-16); Aspartate Amino Transferase 651 U/L (14-36); Basophils Absolute Auto 0.1 K/mm3 (0.0-0.1); Basophils Percent Auto 1.6 % (0.2-1.2); Bilirubin,Total 0.4 mg/dL (0.2-1.3); Blood Urea Nitrogen 20 mg/dL (7-17); Calcium 7.6 mg/dL (8.4-10.2); Carbon Dioxide 28 mmol/L (22-30); Chloride 105 mmol/L (98-107); Eosinophils Absolute Auto 0.3 K/mm3 (0-0.3); Eosinophils Percent Auto 5.1 % (0-4.4); Estimated CRCL calculation 37 ml/min; Estimated Glomerular Filt Rate > 60; Glucose 85 mg/dL (65-105); Hematocrit 38.3 % (37.0-47.0); Hemoglobin 12.3 g/dL (12.0-15.0); Immature Granulocyte Absolute 0.01 K/mm3 (0.00-0.031); Immature Granulocyte Percent A 0.2 % (0-0.5); Lymphocytes Absolute Auto 2.02 K/mm3 (0.9-3.2); Lymphocytes Percent Auto 31.4 % (18.3-44.2); Magnesium 1.8 mg/dL (1.6-2.3); Mean Corpuscular HGB Conc 32.1 g/dl (32-36); Mean Corpuscular Hemoglobin 31.3 pg (26-34); Mean Corpuscular Volume 97.5 fl (80-100); Mean Platelet Volume 9.1 fl (7.4-10.4); Monocytes Absolute Auto 0.4 K/mm3 (0.1-0.6); Monocytes Percent Auto 6.5 % (2.6-8.5); Neutrophils Absolute Auto 3.6 K/mm3 (1.3-6.7); Neutrophils Percent Auto 55.2 % (45.5-73.1); Platelet Count Result 434 k/mm3 (150-375); Potassium 4.3 mmol/L (3.4-5.0); Red Blood Count 3.93 M/mm3 (4.2-5.4); Red Cell Distribution Width 14.1 % (11.5-14.5); Sodium 135 mmol/L (137-145); White Blood Count 6.4 K/mm3 (4.5-10.0)
[2020-04-25 08:21] LABS: Hepatitis B Surface Antigen Negative (Negative)
[2020-04-25 08:26] LABS: HAV RESULT Negative (Negative); Hepatitis B Core IgM Result Negative (Negative)
[2020-04-25] MEDS: ENOXAPARIN 40 MG/0.4 ML SYRINGE SUB-Q (08:34)
[2020-04-25] MEDS: amLODIPine BESYLATE 5 MG TABLET PO (08:34)
[2020-04-25 08:38] LABS: Hepatitis C Virus Antibody Negative (Negative)
[2020-04-25 08:48] VITALS: PULSE 68; RESP 16; O2SAT 91
[2020-04-25 09:33] LABS: Acetaminophen < 10 ug/mL (10-30); Salicylate < 1.0 mg/dL (2-20)
[2020-04-25 09:37] LABS: Lipase 67 U/L (23-300)
--- NOTE | 2020-04-25 13:31 | PM.IMPN ---
Progress Note: A&P Assessment and Plan (1) Pelvic fracture: Code(s): S32.9XXA - Fracture of unspecified parts of lumbosacral spine and pelvis, initial encounter for closed fracture Status: Acute Assessment and Plan: Patient presents with ambulatory dysfunction and CARLA hip pain after a fall last week. -CT pelvis shows multiple pelvic fractures which are nonsurgical and will be treated with pain medications -continue PT and OT (2) Transaminitis: Code(s): R74.01 - Elevation of levels of liver transaminase levels Status: Acute Assessment and Plan: Unclear etiology at this time -ALT up to 455 and AST 651 today which is much higher than previous labs -hepatitis panel negative -salicylate and acetaminophen levels within normal limits -patient states she does not drink alcohol -bilirubin is normal, she has had a cholecystectomy in the past -ultrasound does not show any acute abnormalities -will consult GI (3) COPD (chronic obstructive pulmonary disease): Qualifiers: COPD type: COPD with acute exacerbation Qualified Code(s): J44.1 - Chronic obstructive pulmonary disease with (acute) exacerbation Code(s): J44.9 - Chronic obstructive pulmonary disease, unspecified Status: Chronic Assessment and Plan: No acute respiratory distress. Continue her home Breo Ellipta, add albuterol PRN. (4) Essential hypertension, benign: Code(s): I10 - Essential (primary) hypertension Status: Chronic Assessment and Plan: Last bp 97/66 -patient is not feeling lightheaded or dizzy. She looks a bit dehydrated so I have asked her to increase her water consumption and she agreed (5) Chronic narcotic use: Code(s): F11.90 - Opioid use, unspecified, uncomplicated Status: Chronic Assessment and Plan: Patient notes long-standing history of chronic back pain, had previously been on pretty high doses of oxycontin however she tells me she has not taken it in a few months due to insurance not covering it any longer. -last hospitalization she did not need around the clock narcotics and she actually started using them PRN -Continue pain control with tylenol, norco and dilaudid for now. (6) Tobacco dependence: Code(s): F17.200 - Nicotine dependence, unspecified, uncomplicated Status: Chronic Assessment and Plan: The patient was counseled on tobacco cessation Time Spent With Patient Time with patient: 25 - 35 minutes Subjective Date/time seen: 04/25/20 13:31 Interval history: Pt is a 74-year-old female here for pelvic fracture and transaminitis. Patient was seen today and states her pain is currently a 10/10 and she is awaiting her pain medication. She states she does not usually have a urinary catheter but this was placed in the ER. I talked her about her elevated liver enzymes and she says she has no history of liver disease. She denies any history of hepatitis or elevated liver enzymes in the past. She has been taking a little more acetaminophen than normal but it sounds like she takes 4 pills of 625 a day and definitely does not exceed 4 g. She does not drink alcohol. No recent aspirin intake. She has been eating and drinking okay. No recent yellowing of her skin. she had her gallbladder taken out 20 years ago and has not had any issues since. Review of Systems Review of Systems: All systems reviewed & are unremarkable except as noted in HPI and below Exam Narrative: Exam Narrative: General: Underweight patient resting comfortably in bed in no acute distress HEENT: normocephalic Neck: supple Neuro: Alert and oriented x4 CV:RRR Resp:CTA Abd: Soft, slightly distended. No pain to palpation. Positive bowel sounds Extremities: No swelling, erythema, or pain to palpation. Urine catheter with yellow urine Objective Data Vital Signs Vital Signs: Vital Signs - 24 hr 04/24/20 14:00 04/24/20
[2020-04-25 14:00] VITALS: BP 129/84; PULSE 86; RESP 20; TEMP 36.2; O2SAT 95
--- NOTE | 2020-04-25 16:45 | WPDGICN ---
Assessment and Plan Assessment and plan (1) Sacral fracture, closed: Qualifiers: Encounter type: initial encounter Fracture alignment: minimally displaced Code(s): S32.10XA - Unspecified fracture of sacrum, initial encounter for closed fracture Status: Acute Assessment and Plan: recent fall, orthopedic on board (2) Bilateral pubic rami fractures: Qualifiers: Encounter type: initial encounter Fracture type: closed Qualified Code(s): S32.591A - Other specified fracture of right pubis, initial encounter for closed fracture; S32.592A - Other specified fracture of left pubis, initial encounter for closed fracture Code(s): S32.591A - Other specified fracture of right pubis, initial encounter for closed fracture; S32.592A - Other specified fracture of left pubis, initial encounter for closed fracture Status: Acute (3) Transaminitis: Code(s): R74.01 - Elevation of levels of liver transaminase levels Status: Acute Assessment and Plan: could be multifactorial from fall (will check CPK to see if abnormal), meds, etc we can repeat liver enzymes in outpatient setting after resolution of acute process denies any abdominal pain hepatitis panel negative ultrasound reviewed, mild dilation bile duct but could be cholecystectomy status- since asymptomatic with normal bilirubin I do not think need mrcp (4) Tobacco dependence: Code(s): F17.200 - Nicotine dependence, unspecified, uncomplicated Status: Chronic Assessment and Plan: quit smoking GI Consult Note Consult date/time: 04/25/20 16:45 Reason for consult: elevated liver enzymes HPI: Etienne Cabrera is a 74 year old female with history of hypertension, COPD and chronic narcotic use here after she fell at home few days ago then developed worsening pain of right hip. She came to ER and pelvic CT reviewed, demonstrated a right sacral ala and bilateral pelvic fractures, including right anterior articular acetabular pillar, bilateral pubic bones and inferior pubic rami. Blood work revealed elevated transaminases. She denies eoth use, no hepatitis, no history of liver disease. No abdominal pain, nausea or excessive use of acetaminophen. Review of Systems Constitutional: Constitutional: Reports no additional constitutional complaints Eyes: Eyes: Reports no additional eye complaints ENT: Reports system reviewed and no additional complaints, except as documented Cardiovascular: Cardiovascular: Reports no additional cardiovascular complaints Respiratory: Respiratory: Reports no additional respiratory complaints Gastrointestinal: Gastrointestinal: Denies nausea and Denies vomiting Musculoskeletal: Musculoskeletal: Reports arthralgias Integumentary/Breasts: Skin/Breast: Denies dry skin Neurologic: Reports system reviewed and no additional complaints, except as documented Psychiatric: Psychiatric: Reports no additional psychiatric complaints [facility] Past Medical History Medical History Arthritis Chronic narcotic use COPD (chronic obstructive pulmonary disease) Diverticulosis Essential hypertension, benign History of peptic ulcer Tobacco abuse Surgical History Surgical History Hx of dilation and curettage 2001 Hx of spinal surgery 2 cervical (front) and 1 cervical posterior 2 lumbar surgeries S/P appy 195 S/P cholecystectomy 1970 Family History Family History Father Lung cancer Mother Lung cancer Sibling Cancer of brain Sibling Cancer of brain Other Cancer of kidney Cerebrovascular accident Social History Social History Social History: Home with . Worked at [employer]. Hx of tobacco use. Full code. Smokes 3-4 cig/day. No alcohol. wo
[2020-04-25 16:52] LABS: Creatine Kinase 30 U/L (30-135)
[2020-04-25] MEDS: HYDROmorphone HCL INJ (*CRX) 1 MG/ML SYR IV PUSH ×2 (18:10→22:39)
[2020-04-25] MEDS: traZODone HCL 50 MG TABLET PO (21:01)
[2020-04-25 21:32] VITALS: BP 124/50; PULSE 58; RESP 20; TEMP 36.2; O2SAT 100
[2020-04-26] MEDS: HYDROmorphone HCL INJ (*CRX) 1 MG/ML SYR IV PUSH ×2 (04:15→08:05)
[2020-04-26 06:00] VITALS: BP 120/69; PULSE 79; RESP 20; TEMP 35.9; O2SAT 97
[2020-04-26 06:04] LABS: Hematocrit 34.9 % (37.0-47.0); Hemoglobin 11.5 g/dL (12.0-15.0); Mean Corpuscular Hemoglobin 32.5 pg (26-34); Mean Corpuscular Volume 98.6 fl (80-100); Mean Platelet Volume 8.9 fl (7.4-10.4); Platelet Count Result 340 k/mm3 (150-375); Red Blood Count 3.54 M/mm3 (4.2-5.4); Red Cell Distribution Width 14.4 % (11.5-14.5); White Blood Count 5.4 K/mm3 (4.5-10.0)
[2020-04-26 06:16] LABS: Alanine Aminotransferase 538 U/L (4-35); Albumin Level 2.5 g/dL (3.5-5.1); Alkaline Phosphatase 235 U/L (38-126); Anion Gap 0 mmol/L (8-16); Aspartate Amino Transferase 479 U/L (14-36); Bilirubin,Total 0.3 mg/dL (0.2-1.3); Blood Urea Nitrogen 19 mg/dL (7-17); CRP 1.3 mg/dL (<1.0); Calcium 7.5 mg/dL (8.4-10.2); Carbon Dioxide 26 mmol/L (22-30); Chloride 104 mmol/L (98-107); Estimated CRCL calculation 37 ml/min; Estimated Glomerular Filt Rate > 60; Glucose 96 mg/dL (65-105); Magnesium 1.9 mg/dL (1.6-2.3); Potassium 4.2 mmol/L (3.4-5.0); Sodium 130 mmol/L (137-145)
[2020-04-26] MEDS: ENOXAPARIN 40 MG/0.4 ML SYRINGE SUB-Q (08:05)
[2020-04-26] MEDS: amLODIPine BESYLATE 5 MG TABLET PO (08:05)
[2020-04-26] MEDS: HYDROcodone/acetaminophen (*CRX) 7.5-325 MG TABLET 1 TAB PO (10:16)
[2020-04-26] MEDS: KETOROLAC 15 MG/ML VIAL (*BKC) IV PUSH ×2 (11:34→18:36)
[2020-04-26 12:20] LABS: Free T4 Free Thyroxine Reflex 1.28 ng/dL (0.78-2.19)
--- NOTE | 2020-04-26 12:30 | PM.IMPN ---
Progress Note: A&P Assessment and Plan (1) Pelvic fracture: Code(s): S32.9XXA - Fracture of unspecified parts of lumbosacral spine and pelvis, initial encounter for closed fracture Status: Acute Assessment and Plan: Patient presents with ambulatory dysfunction and CARLA hip pain after a fall last week. -CT pelvis shows multiple pelvic fractures which are nonsurgical and will be treated with pain medications -continue PT and OT -patient is still utilizing IV pain medications. We are hoping to transfer her in the upcoming days and want to transition her to oral only. I am going to adjust her pain medications at this time. On the previous admissions she was taking 80 mg of OxyContin b.i.d. as well as 40 mg at night scheduled. At discharge of that admission, that was adjusted to oxycodone 5mg p.r.n because she was altered with the high dose narcotic and did not require any narcotics throughout that last stay with no withdraw symptoms. Now that she is requiring narcotics, we may need to increase her dose for her pain. -for now on going to switch her over to oxycodone and leave her Dilaudid as p.r.n. for severe pain (2) Transaminitis: Code(s): R74.01 - Elevation of levels of liver transaminase levels Status: Acute Assessment and Plan: Unclear etiology at this time, no jandice -ALT up to 538 and AST 479 today -hepatitis panel negative, CK normal -salicylate and acetaminophen levels within normal limits -patient states she does not drink alcohol -bilirubin is normal, she has had a cholecystectomy in the past -ultrasound does not show any acute abnormalities -appetitie is good -GI consulted (3) COPD (chronic obstructive pulmonary disease): Qualifiers: COPD type: COPD with acute exacerbation Qualified Code(s): J44.1 - Chronic obstructive pulmonary disease with (acute) exacerbation Code(s): J44.9 - Chronic obstructive pulmonary disease, unspecified Status: Chronic Assessment and Plan: No acute respiratory distress. Continue her home Breo Ellipta, and albuterol PRN. (4) Essential hypertension, benign: Code(s): I10 - Essential (primary) hypertension Status: Chronic Assessment and Plan: Last bp 120/69 -patient is not feeling lightheaded or dizzy. (5) Chronic narcotic use: Code(s): F11.90 - Opioid use, unspecified, uncomplicated Status: Chronic Assessment and Plan: Patient notes long-standing history of chronic back pain, had previously been on pretty high doses of oxycontin however she tells me she has not taken it in a few months due to insurance not covering it any longer and pain control. -last hospitalization she did not need around the clock narcotics and she actually started using them PRN -Continue pain control with tylenol, norco and dilaudid for now. (6) Tobacco dependence: Code(s): F17.200 - Nicotine dependence, unspecified, uncomplicated Status: Chronic Assessment and Plan: The patient was counseled on tobacco cessation Additional Plan Rodriguez catheter inserted but once she is able to get up with PT, will remove to avoid infection. Subjective Date/time seen: 04/26/20 12:30 Interval history: Pt is a 74-year-old female here for pelvic fracture and transaminitis. Patient was seen today and states her pain is under control when she doesn't move and gets her medications but can easily get to a 10/10 with movement or when her meds wears off. She hasn't worked with PT yet. She has no other complaints and denies numbness and tingling. She is eating and drinking well but hates our food. She denies abdominal pain, nausea, vomiting, diarrhea, or constipation. Exam Narrative: Exam Narrative: General: Underweight patient resting comfortably in bed in no acute distress HEENT: normocephalic Neck: supple, no pain to the neck. Neuro: Alert and oriented x4 CV:RRR Resp:CTA Abd: Soft
--- NOTE | 2020-04-26 13:58 | WPDGIPROGNO ---
Progress Note: A&P Assessment and Plan (1) Transaminitis: Code(s): R74.01 - Elevation of levels of liver transaminase levels Status: Acute Assessment and Plan: normal ck, liver enzymes were normal in previous visit still elevated but relatively stable no eoth use repeat again as outpatient after resolution of fracture, if still elevated then can complete work up denies any gi symptom, good appetite, normal bilirubin and liver imaging was reviewed (2) Pelvic fracture: Code(s): S32.9XXA - Fracture of unspecified parts of lumbosacral spine and pelvis, initial encounter for closed fracture Status: Acute Assessment and Plan: ortho on board (3) Essential hypertension, benign: Code(s): I10 - Essential (primary) hypertension Status: Chronic Subjective Date/time seen: 04/26/20 13:58 Interval history: still with pelvic pain but sitting up, no abdominal pain, appetite is normal. Review of Systems Review of Systems: All systems reviewed & are unremarkable except as noted in HPI and below Exam Const: General: comfortable and no acute distress Other: thin. Family at bedside HENMT: General nose exam: Normal nares present Eyes: General: appearance normal, both eyes and all related structures Neck: Neck: supple Resp: Auscultation: clear to auscultation bilaterally Cardio: Rate: regular rate GI: GI Palp: Yes Soft to palpation, No Tenderness to palpation present (GI) and No Guarding due to palpation present (GI) Auscultation: normal bowel sounds Skin: General skin exam: normal color Neuro: Speech: normal speech Motor exam (neuro): 5/5 motor strength present throughout Extrem: Other: pelvic discomfort Psych: Mental Status: mental status grossly normal Objective Data Vital Signs Vital Signs: Vital Signs - 24 hr 04/25/20 14:00 04/25/20 21:32 04/26/20 06:00 Temperature 97.2 F L 97.2 F L 96.6 F L Pulse Rate 86 58 L 79 Respiratory Rate 20 20 20 Blood Pressure 129/84 124/50 L 120/69 Pulse Oximetry 95 100 97 Intake/Output Intake/Output: Intake & Output 04/23/20 04/24/20 04/25/20 04/26/20 23:59 23:59 23:59 23:59 Intake Total 1320 1940 980 Output Total 1650 550 750 Balance -330 1390 230 Meds/Results Medications: Active Medications Generic Name Dose Route Start Last Admin Trade Name Freq PRN Reason Stop Dose Admin Acetaminophen 650 mg 04/23/20 21:19 Acetaminophen 325 Mg Tablet PO Q4H PRN Mild Pain (1-3) or Fever Albuterol 2 puff 04/24/20 13:24 Albuterol Sulfate (*Sp) Aerosol 1 Puff INHALATION Q6HRT PRN Shortness Of Breath Amlodipine Besylate 5 mg 04/24/20 09:00 04/26/20 08:05 Amlodipine Besylate 5 Mg Tablet PO 5 mg QAM LUKE Administration Budesonide/Formoterol Fumarate 2 puff 04/24/20 08:00 04/26/20 08:06 Budesonide/Form 160-4.5 Mcg (*Sp) INHALATION 2 puff Q12HRT LUKE Administration Enoxaparin Sodium 40 mg 04/25/20 09:00 04/26/20 08:05 Enoxaparin 40 Mg/0.4 Ml Syringe SUB-Q 40 mg DAILY LUKE Administration Hydromorphone HCl 0.5 mg 04/26/20 12:44 Hydromorphone Hcl Inj (*Crx) 1 Mg/Ml Syr IV PUSH Q3H PRN uncontrolled pain Ketorolac Tromethamine 15 mg 04/24/20 16:47 04/26/20 11:34 Ketorolac 15 Mg/Ml Vial (*Bkc) IV PUSH 15 mg Q6H PRN Administration Pain Rated 4-6 Naloxone HCl 0.1 mg 04/26/20 12:42 Naloxone Hcl 0.4 Mg/Ml Vial IV PUSH Q5MIN PRN narcotic overdose Oxycodone HCl 5 mg 04/26/20 14:00 Oxycodone Hcl (*Crx) 5 Mg Tab Ir PO Q4H PRN Pain Rated 4-6 Oxycodone HCl 2.5 mg 04/26/20 12:49 Oxycodone Hcl (*Crx) 2.5 Mg Tab Ir PO Q4H PRN Pain Rated 7-10 Oxycodone HCl 5 mg 04/26/20 12:49 Oxycodone Hcl (*Crx) 5 Mg Tab Ir PO Q4H PRN Pain Rated 7-10 Trazodone HCl 50 mg 04/24/20 21:00 04/25/20 21:01 Trazodone Hcl 50 Mg Tablet PO 50 mg HS LUKE Administration Radiology Results: ITS
[2020-04-26 14:00] VITALS: BP 113/49; PULSE 63; RESP 18; TEMP 36.8; O2SAT 99
--- NOTE | 2020-04-26 15:01 | PM.PNORT ---
Progress Note: A&P Assessment and Plan (1) Sacral fracture, closed: Qualifiers: Encounter type: initial encounter Fracture alignment: minimally displaced Code(s): S32.10XA - Unspecified fracture of sacrum, initial encounter for closed fracture Status: Acute Assessment and Plan: Continue pain control. Ice. Continue PT/OT. NWB RLE due to right acetabulum fracture and sacral ala fracture. Expect 6-8 weeks of NWB RLE. Walker. HIGH FALL RISK. DVT prophylaxis x4 weeks. Dispo: Acute Rehab Follow up scheduled x6 weeks. (2) Bilateral pubic rami fractures: Qualifiers: Encounter type: initial encounter Fracture type: closed Qualified Code(s): S32.591A - Other specified fracture of right pubis, initial encounter for closed fracture; S32.592A - Other specified fracture of left pubis, initial encounter for closed fracture Code(s): S32.591A - Other specified fracture of right pubis, initial encounter for closed fracture; S32.592A - Other specified fracture of left pubis, initial encounter for closed fracture Status: Acute Assessment and Plan: Continue pain control. (3) Right acetabular fracture: Qualifiers: Encounter type: initial encounter Sublocation of acetabulum: anterior column Fracture type: closed Fracture alignment: nondisplaced Qualified Code(s): S32.434A - Nondisplaced fracture of anterior column [iliopubic] of right acetabulum, initial encounter for closed fracture Code(s): S32.401A - Unspecified fracture of right acetabulum, initial encounter for closed fracture Status: Acute Assessment and Plan: Continue pain control. NWB RLE. Subjective Subjective Date/Time Seen: 04/26/20 15:01 No new complaints. Some difficulty with pain control Review of Systems Review of Systems: All systems reviewed & are unremarkable except as noted in HPI and below Exam Const: General: comfortable and no acute distress Resp: Effort & Inspection: normal respiratory effort Cardio: Rate: regular rate Rhythm: regular rhythm GI: Inspection: non-distended GI Palp: Yes Soft to palpation, No Firmness to palpation present (GI) and No Tenderness to palpation present (GI) Extrem: Right lower extremity: normal to inspection, normal capillary refill, hip/thigh Details: tenderness Location: of the hip, swelling Location: at the hip and abnormal ROM Details: pain with active ROM during Details: to internal rotation and to external rotation and pain with passive ROM during Details: to internal rotation and to external rotation, knee Details: normal to inspection, normal ROM and knee ligament exam normal; no tenderness, lower leg Details: normal to inspection and no edema; no tenderness, no localized swelling, no ecchymosis and no deformity, ankle Details: normal to inspection and normal ROM; no tenderness and foot Details: normal capillary refill, normal to inspection, toes with normal ROM, vascular exam Details: dorsalis pedis pulse present, posterior tibial pulse present and normal capillary refill, tendon exam Details: active flexion normal and active extension normal and motor-sensory exam Details: light-touch normal; no tenderness Left lower extremity: normal to inspection, normal capillary refill, hip/thigh Details: normal to inspection, tenderness and abnormal ROM Details: pain with active ROM and pain with passive ROM; no ecchymosis, knee Details: normal to inspection and normal ROM; no tenderness and no swelling, lower leg Details: normal to inspection, palpable cord and no edema; no tenderness, no localized swelling, no ecchymosis and no deformity, ankle Details: normal to inspection and normal ROM; no tenderness and foot Details: normal capillary refill, normal to inspection, toes with normal ROM, vascular exam Details: dorsalis pedis pulse present and posterior tibial pulse present, tendon exam active flexion normal and active extension normal and motor-senso
[2020-04-26] MEDS: oxyCODONE HCL (*CRX) 5 MG TAB IR PO ×2 (15:39→22:11)
[2020-04-26] MEDS: oxyCODONE HCL (*CRX) 2.5 MG TAB IR PO ×2 (15:39→22:10)
[2020-04-26 19:28] LABS: SARS-CoV-2 RNA PCR Negative
[2020-04-26] MEDS: traZODone HCL 50 MG TABLET PO (19:59)
[2020-04-26 20:00] VITALS: PULSE 80; RESP 20; O2SAT 100
[2020-04-26] MEDS: HYDROmorphone HCL INJ (*CRX) 1 MG/ML SYR 0.5 MG IV PUSH ×2 (20:10→23:16)
[2020-04-26 21:53] VITALS: BP 120/57; PULSE 80; RESP 20; TEMP 36.5; O2SAT 100
[2020-04-26 23:32] LABS: Total Triiodothyronine (T3) 0.89 NG/ML (0.97-1.69)
[2020-04-27] MEDS: KETOROLAC 15 MG/ML VIAL (*BKC) IV PUSH ×3 (00:35→20:29)
[2020-04-27] MEDS: oxyCODONE HCL (*CRX) 2.5 MG TAB IR PO ×2 (02:04→06:17)
[2020-04-27] MEDS: oxyCODONE HCL (*CRX) 5 MG TAB IR PO ×3 (02:05→10:56)
[2020-04-27 06:00] VITALS: BP 151/73; PULSE 64; RESP 20; TEMP 36.4; O2SAT 97
[2020-04-27 06:33] LABS: Alanine Aminotransferase 387 U/L (4-35); Albumin Level 2.6 g/dL (3.5-5.1); Alkaline Phosphatase 247 U/L (38-126); Anion Gap 0 mmol/L (8-16); Aspartate Amino Transferase 210 U/L (14-36); Bilirubin,Total 0.4 mg/dL (0.2-1.3); Blood Urea Nitrogen 15 mg/dL (7-17); Calcium 7.7 mg/dL (8.4-10.2); Carbon Dioxide 27 mmol/L (22-30); Chloride 106 mmol/L (98-107); Estimated CRCL calculation 42 ml/min; Estimated Glomerular Filt Rate > 60; Glucose 84 mg/dL (65-105); Potassium 4.6 mmol/L (3.4-5.0); Sodium 133 mmol/L (137-145)
[2020-04-27 08:00] VITALS: PULSE 75; RESP 18; O2SAT 99
[2020-04-27] MEDS: ENOXAPARIN 40 MG/0.4 ML SYRINGE SUB-Q (09:08)
[2020-04-27] MEDS: amLODIPine BESYLATE 5 MG TABLET PO (09:10)
[2020-04-27] MEDS: HYDROmorphone HCL INJ (*CRX) 1 MG/ML SYR 0.5 MG IV PUSH ×2 (09:20→20:24)
[2020-04-27 14:00] VITALS: BP 126/59; PULSE 75; RESP 18; TEMP 36.9; O2SAT 99
--- NOTE | 2020-04-27 14:01 | PCPTNOTE ---
Patient declined PT this afternoon due to pain. PT will continue to follow per plan of care.
--- NOTE | 2020-04-27 14:14 | PM.IMPN ---
Progress Note: A&P Assessment and Plan (1) Pelvic fracture: Code(s): S32.9XXA - Fracture of unspecified parts of lumbosacral spine and pelvis, initial encounter for closed fracture Status: Acute Assessment and Plan: Patient presents with ambulatory dysfunction and CARLA hip pain after a fall last week. -CT pelvis shows multiple pelvic fractures which are nonsurgical and will be treated with pain medications -continue PT and OT -patient is still utilizing IV pain medications p.r.n.. We are hoping to transfer her in the upcoming days and want to transition her to oral only. I am going to adjust her pain medications again and increase it slowly. On the previous admissions she was taking 80 mg of OxyContin b.i.d. as well as 40 mg at night scheduled. At discharge of that admission, that was adjusted to oxycodone 5mg p.r.n because she was altered with the high dose narcotic and did not require any narcotics throughout that last stay with no withdraw symptoms. Now that she is requiring narcotics, we may need to increase her dose for her pain. Will do 10 mg oxycodone p.r.n. for pain 7-10 with Narcan available as needed -continue Dilaudid p.r.n. for intractable pain (2) Transaminitis: Code(s): R74.01 - Elevation of levels of liver transaminase levels Status: Acute Assessment and Plan: Unclear etiology at this time, no jandice -liver enzymes improving today -hepatitis panel negative, CK normal -salicylate and acetaminophen levels within normal limits -patient states she does not drink alcohol -bilirubin is normal, she has had a cholecystectomy in the past -ultrasound does not show any acute abnormalities -appetitie is good -GI consulted (3) COPD (chronic obstructive pulmonary disease): Qualifiers: COPD type: COPD with acute exacerbation Qualified Code(s): J44.1 - Chronic obstructive pulmonary disease with (acute) exacerbation Code(s): J44.9 - Chronic obstructive pulmonary disease, unspecified Status: Chronic Assessment and Plan: No acute respiratory distress. Continue her home Breo Ellipta, and albuterol PRN. (4) Essential hypertension, benign: Code(s): I10 - Essential (primary) hypertension Status: Chronic Assessment and Plan: Last bp 151/73 -continue amlodipine (5) Chronic narcotic use: Code(s): F11.90 - Opioid use, unspecified, uncomplicated Status: Chronic Assessment and Plan: Patient notes long-standing history of chronic back pain, had previously been on pretty high doses of oxycontin however she tells me she has not taken it in a few months due to insurance not covering it any longer and pain control. -last hospitalization she did not need around the clock narcotics and she actually started using them PRN -Continue pain control with norco and dilaudid for now. (6) Tobacco dependence: Code(s): F17.200 - Nicotine dependence, unspecified, uncomplicated Status: Chronic Assessment and Plan: The patient was counseled on tobacco cessation Subjective Date/time seen: 04/27/20 14:14 Interval history: Pt is a 74-year-old female here for pelvic fracture and transaminitis. Patient was seen today and states her pain is 7/10 while sitting and 10 of 10 while doing therapy. I also spoke to the DIVISION OPERATIONS MANAGER, Rajinder, who states the she is able to get up and move but is in significant pain while doing so. She states she has no numbness or tingling to the area. She still has not had a bowel movement. She is eating and drinking well but hates our food. She denies abdominal pain, nausea, or vomiting. Exam Narrative: Exam Narrative: General: Underweight patient resting comfortably in bed in no acute distress HEENT: normocephalic Neck: supple, no pain to the neck. Neuro: Alert and oriented x4 CV:RRR Resp:CTA Abd: Soft, slightly distended. No pain to palpation. Positive bowel sounds Extremities: No
[2020-04-27] MEDS: oxyCODONE HCL (*CRX) 5 MG TAB IR 10 MG PO ×2 (16:39→22:20)
[2020-04-27] MEDS: polyethylene glycoL 3350 17 GM POWD.PACK PO (16:39)
[2020-04-27] MEDS: traZODone HCL 50 MG TABLET PO (20:34)
[2020-04-27 21:38] VITALS: BP 112/62; PULSE 71; RESP 20; TEMP 36.9; O2SAT 99
[2020-04-28] MEDS: HYDROmorphone HCL INJ (*CRX) 1 MG/ML SYR 0.5 MG IV PUSH (01:00)
[2020-04-28] MEDS: oxyCODONE HCL (*CRX) 5 MG TAB IR 10 MG PO ×4 (02:23→20:48)
[2020-04-28] MEDS: KETOROLAC 15 MG/ML VIAL (*BKC) IV PUSH (05:39)
[2020-04-28 06:00] VITALS: BP 128/60; PULSE 66; RESP 16; TEMP 36.8; O2SAT 96
[2020-04-28 07:25] LABS: Hematocrit 33.9 % (37.0-47.0)
[2020-04-28 07:29] LABS: Anion Gap 1 mmol/L (8-16); Blood Urea Nitrogen 12 mg/dL (7-17); Calcium 7.8 mg/dL (8.4-10.2); Carbon Dioxide 26 mmol/L (22-30); Chloride 106 mmol/L (98-107); Estimated CRCL calculation 37 ml/min; Estimated Glomerular Filt Rate > 60; Glucose 91 mg/dL (65-105); Potassium 4.4 mmol/L (3.4-5.0); Sodium 133 mmol/L (137-145)
[2020-04-28 08:00] VITALS: PULSE 66; RESP 16; O2SAT 96
[2020-04-28 08:03] LABS: Alanine Aminotransferase 247 U/L (4-35); Albumin Level 2.6 g/dL (3.5-5.1); Alkaline Phosphatase 216 U/L (38-126); Aspartate Amino Transferase 107 U/L (14-36); Bilirubin,Total 0.3 mg/dL (0.2-1.3)
[2020-04-28] MEDS: amLODIPine BESYLATE 5 MG TABLET PO (10:20)
[2020-04-28] MEDS: polyethylene glycoL 3350 17 GM POWD.PACK PO (10:20)
[2020-04-28] MEDS: ENOXAPARIN 40 MG/0.4 ML SYRINGE SUB-Q (10:20)
--- NOTE | 2020-04-28 10:49 | PM.IMPN ---
Progress Note: A&P Assessment and Plan (1) Pelvic fracture: Code(s): S32.9XXA - Fracture of unspecified parts of lumbosacral spine and pelvis, initial encounter for closed fracture Status: Acute Assessment and Plan: Patient presents with ambulatory dysfunction and CARLA hip pain after a fall last week. -CT pelvis shows multiple pelvic fractures which are nonsurgical and will be treated with pain medications -I am stopping the IV Dilaudid to prepare pt for discharge. She will not have access to this at the rehab and she needs to be able to have pain control without it. We will see how she does on oral medications today and if she tolerates this, she will discharge tomorrow morning. -continue PT and OT (2) Transaminitis: Code(s): R74.01 - Elevation of levels of liver transaminase levels Status: Acute Assessment and Plan: Unclear etiology at this time, no jaundice -liver enzymes improving today -hepatitis panel negative, CK normal -salicylate and acetaminophen levels within normal limits -patient states she does not drink alcohol -bilirubin is normal, she has had a cholecystectomy in the past -ultrasound does not show any acute abnormalities -appetite is good -GI consulted (3) COPD (chronic obstructive pulmonary disease): Qualifiers: COPD type: COPD with acute exacerbation Qualified Code(s): J44.1 - Chronic obstructive pulmonary disease with (acute) exacerbation Code(s): J44.9 - Chronic obstructive pulmonary disease, unspecified Status: Chronic Assessment and Plan: No acute respiratory distress. Continue her home Breo Ellipta, and albuterol PRN. (4) Essential hypertension, benign: Code(s): I10 - Essential (primary) hypertension Status: Chronic Assessment and Plan: Last bp 128/60 -continue amlodipine (5) Chronic narcotic use: Code(s): F11.90 - Opioid use, unspecified, uncomplicated Status: Chronic Assessment and Plan: Patient notes long-standing history of chronic back pain, had previously been on pretty high doses of oxycontin however she tells me she has not taken it in a few months due to insurance not covering it any longer and pain control. -last hospitalization she did not need around the clock narcotics and she actually started using them PRN -Continue pain control with norco as above (6) Tobacco dependence: Code(s): F17.200 - Nicotine dependence, unspecified, uncomplicated Status: Chronic Assessment and Plan: The patient was counseled on tobacco cessation Additional Plan Subjective Date/time seen: 04/28/20 10:49 Interval history: Pt is a 74-year-old female here for pelvic fracture and transaminitis. Patient was seen today and was sitting in the chair in NAD. She stated she was tired but her pain was somewhat under control. She still has not had a bowel movement. She is eating and drinking well. She denies abdominal pain, nausea,CP, SOB, or vomiting. Exam Narrative: Exam Narrative: General: Underweight patient resting comfortably in chair in no acute distress HEENT: normocephalic Neck: supple, no pain to the neck. Neuro: Alert and oriented x4 CV:RRR Resp:CTA Abd: Soft, slightly distended. No pain to palpation. Positive bowel sounds Extremities: No swelling, erythema, or pain to palpation. plantar flexion and dorsiflexion is 5/5 with pulses and sensation intact. Objective Data Vital Signs Vital Signs: Vital Signs - 24 hr 04/27/20 14:00 04/27/20 21:38 04/28/20 06:00 Temperature 98.4 F 98.5 F 98.2 F Pulse Rate 75 71 66 Respiratory Rate 18 20 16 Blood Pressure 126/59 L 112/62 128/60 Pulse Oximetry 99 99 96 04/28/20 08:00 Temperature Pulse Rate 66 Respiratory Rate 16 Blood Pressure Pulse Oximetry 96 Intake/Output Intake/Output: Intake & Output 04/25/20 04/26/20 04/27/20 04/28/20 23:59 23:59 23:59 23:59 Intake Total 19
[2020-04-28] MEDS: MAGNESIUM HYDROXIDE SUSP 30 ML UDC PO (11:05)
[2020-04-28 14:00] VITALS: BP 104/62; PULSE 87; RESP 16; TEMP 37.1; O2SAT 99
[2020-04-28] MEDS: traZODone HCL 50 MG TABLET PO (20:43)
[2020-04-28] MEDS: SENNA/DOCUSATE SODIUM TABLET 1 TAB PO (20:43)
[2020-04-28 22:00] VITALS: BP 102/44; PULSE 71; RESP 18; TEMP 36.4; O2SAT 95
[2020-04-29] MEDS: oxyCODONE HCL (*CRX) 5 MG TAB IR 10 MG PO ×3 (03:56→12:27)
[2020-04-29 05:44] VITALS: BP 106/47; PULSE 72; RESP 17; TEMP 37.1; O2SAT 99
[2020-04-29 06:40] LABS: Alanine Aminotransferase 182 U/L (4-35); Albumin Level 2.7 g/dL (3.5-5.1); Alkaline Phosphatase 213 U/L (38-126); Aspartate Amino Transferase 65 U/L (14-36); Bilirubin,Total 0.3 mg/dL (0.2-1.3)
[2020-04-29] MEDS: MAGNESIUM HYDROXIDE SUSP 30 ML UDC PO (08:24)
[2020-04-29] MEDS: amLODIPine BESYLATE 5 MG TABLET PO (08:24)
[2020-04-29] MEDS: ENOXAPARIN 40 MG/0.4 ML SYRINGE SUB-Q (08:24)
[2020-04-29] MEDS: polyethylene glycoL 3350 17 GM POWD.PACK PO (08:24)
--- NOTE | 2020-04-29 10:04 | PM.DS ---
DS: Admitting Diagnosis Admitting Diagnosis Admitting Diagnosis: pelvic fracture DS: Discharge Diagnosis Discharge Diagnosis (1) Pelvic fracture: Code(s): S32.9XXA - Fracture of unspecified parts of lumbosacral spine and pelvis, initial encounter for closed fracture Status: Acute Assessment and Plan: Patient presents on 04/23 with ambulatory dysfunction and CARLA hip pain after a fall last week. -CT pelvis shows multiple pelvic fractures which are nonsurgical and will be treated with pain medications -Pt admitted for IV pain medication and it took her several days to transition to oral -PT/OT saw her and recommended SNF and she was discharged 04/29/20 (2) Transaminitis: Code(s): R74.01 - Elevation of levels of liver transaminase levels Status: Acute Assessment and Plan: -AST max 651 down to 65 day of discharge -LT max 538 down to 182 at discharge -Unclear etiology at this time, no jaundice -liver enzymes improving by the day -hepatitis panel negative, CK normal -salicylate and acetaminophen levels within normal limits -patient states she does not drink alcohol -bilirubin is normal, she has had a cholecystectomy in the past -ultrasound does not show any acute abnormalities -appetite is good -GI consulted while here and recommended conservative treatment. repeat LFTs outpt (3) COPD (chronic obstructive pulmonary disease): Qualifiers: COPD type: COPD with acute exacerbation Qualified Code(s): J44.1 - Chronic obstructive pulmonary disease with (acute) exacerbation Code(s): J44.9 - Chronic obstructive pulmonary disease, unspecified Status: Chronic Assessment and Plan: No acute respiratory distress. Continue her home Breo Ellipta, and albuterol PRN. (4) Essential hypertension, benign: Code(s): I10 - Essential (primary) hypertension Status: Chronic Assessment and Plan: Last bp 107/52 -continue amlodipine (5) Chronic narcotic use: Code(s): F11.90 - Opioid use, unspecified, uncomplicated Status: Chronic Assessment and Plan: Patient notes long-standing history of chronic back pain, had previously been on pretty high doses of oxycontin however she tells me she has not taken it in a few months due to insurance not covering it any longer and pain control. -last hospitalization she did not need around the clock narcotics and she actually started using them PRN -Continue pain control with oxy and increase as needed at the SNF (6) Tobacco dependence: Code(s): F17.200 - Nicotine dependence, unspecified, uncomplicated Status: Chronic Assessment and Plan: The patient was counseled on tobacco cessation DS: Summary Hospital Course Hospital Course: Patient is an underweight 74-year-old female who presented emergency room on April 23, 2020 for hip pain after several falls. Vitals in the ER were temperature 36.9? C, pulse 89, respiratory rate 16, blood pressure 153/73, pulse ox 100 on room air. Initial white blood cell count 6.9, hemoglobin 13.7, hematocrit 42.0, platelets 549. BMP within normal limits. AST and ALT were elevated, AST 215, ALT 100. Alk-phos 308. UA negative for UTI. CT of the pelvis showed right sacral all a and bilateral pelvic fractures including right anterior an articular acetabular pillar, bilateral pubic bones, and inferior pubic. Seen by orthopedic surgeon Dr. Eagle who recommended conservative management with pain medications and PT. The patient has a history of narcotic use and required IV narcotics for multiple days which prolonged her hospitalization. She also started to have elevated liver enzymes pretty significantly which prolonged her stay. No etiology was found. Ultrasound was negative for abnormalities and no MRCP was indicated. GI was consulted and recommended close follow-up as it could be due to her acute fractures. They were trending down at discharge as stat
[2020-04-29 13:22] LABS: SARS-CoV-2 RNA PCR Negative
[2020-04-29 14:00] VITALS: BP 107/52; PULSE 88; RESP 18; TEMP 36.6; O2SAT 96
== END 2020-04-29 15:51 | DRG 535 ==
LOC: ANHED 17:28 → ANH3MEDSUR 22:52
PROVIDERS: Family Medicine; Internal Medicine Gastroenterology; Physician Assistant; Admitting Provider Family Medicine; Emergency Provider Emergency Medicine; PCP Family Medicine Adolescent Medicine; Visit Provider Physician Assistant
DX: S32.591A Other specified fracture of right pubis, initial encounter for closed fracture (principal); S32.434A Nondisplaced fracture of anterior column [iliopubic] of right acetabulum, initial encounter for closed fracture; S32.10XA Unspecified fracture of sacrum, initial encounter for closed fracture; J44.1 Chronic obstructive pulmonary disease with (acute) exacerbation; S32.592A Other specified fracture of left pubis, initial encounter for closed fracture; W19.XXXA Unspecified fall, initial encounter; Z20.822 Contact with and (suspected) exposure to COVID-19; R74.01 Elevation of levels of liver transaminase levels; F17.210 Nicotine dependence, cigarettes, uncomplicated; I10 Essential (primary) hypertension; F11.90 Opioid use, unspecified, uncomplicated; M54.5 Low back pain; M54.2 Cervicalgia; G89.29 Other chronic pain; M19.90 Unspecified osteoarthritis, unspecified site; Z79.899 Other long term (current) drug therapy
CPT/HCPCS: 36415; 70450; 71045; 72192; 73502; 76705; 80048; 80053; 80074; 80076; 80307; 81001; 82550; 83690; 83735; 84439; 84443; 84480; 85014; 85018; 85025; 85027; 86140; 94640; 96374; 96376; 97110; 97161; 97165; 97530; 97535; 99285; A9270; C9803; G0378; J1170; J1650; J1885; U0003; U0005

== ENCOUNTER 2020-07-19 15:01 | Emergency (ER) | payer MEDICARE, OTHER, SELFPAY ==
--- NOTE | ~2020-07-19 | XR_ITS ---
EXAMINATION: XR chest 1V DATE: 07/19/2020 16:03 INDICATION: Hypoxia and transient alteration of awareness. TECHNIQUE: frontal view of the chest was obtained. COMPARISON: Chest radiograph dated 04/23/2020 FINDINGS: Hyperexpansion of the lungs particularly in the upper lobes is increased lucency and architectural di stortion with caudal retraction of the harriet consistent with emphysema. No focal airspace opacities, p ulmonary edema, pleural effusion or pneumothorax. The cardiomediastinal silhouette is normal. Postope rative change of combined instrumented anterior and posterior spinal fusion throughout the majority o f the cervical spine. Additional postoperative changes in the epigastric region of the upper abdomen. IMPRESSION: 1. Emphysema. Reviewed, dictated and finalized at location A. IMPRESSION: 1. Emphysema.
--- NOTE | ~2020-07-19 | CT_ITS ---
EXAMINATION: CT brain wo con DATE: 07/19/2020 16:18 INDICATION: Altered mental status TECHNIQUE: Computed tomography (CT) of the head was performed without intravenous contrast. The dose- length product was 605.33 mGy-cm. Automated exposure control and iterative reconstruction technique w ere employed. COMPARISON: CT dated 04/23/2020 FINDINGS: Generalized atrophy. There is a chronic right lacunar infarction involving the caudate nucl eus. There are scattered moderate periventricular and subcortical white matter changes, most likely r elated to small vessel ischemic disease (microangiopathy). No acute intracranial infarction identifie d. No intracranial hemorrhage. Chronic right cerebellar infarction. Paranasal sinuses and mastoids ar e pneumatized. No depressed skull fractures. IMPRESSION: 1. Chronic right lacunar and cerebellar infarctions. 2: Chronic age-related findings. Reviewed, dictated and finalized at location B.
--- NOTE | 2020-07-19 15:09 | ED.AMS ---
HPI - Altered Mental Status General Chief Complaint: Altered Mental Status Stated Complaint: CONFUSION, COMBATIVE, POSSIBLE OD Time Seen by Provider: 07/19/20 15:09 History of Present Illness HPI narrative: 74 yo female w/ h/o COPD, htn, chronic pain presents to the ED for altered mental status. Today she had an appointment with physical therapy and she was noted to be somnolent, confused and combative. She is on morphine for her chronic pain and it is believed that she may have taken too much. She was hypoxic on room air and arrived here on 3 liters with an oxygen saturation of 94%. On my evaluation she is arousable, but confused and unable to provide history. Related Data Home Medications Medication Instructions Recorded Confirmed Breo Ellipta 25 inh INHALATION PRN PRN 03/29/20 04/24/20 trazodone 50 mg PO HS 03/29/20 04/24/20 Allergies Allergy/AdvReac Type Severity Reaction Status Date / Time codeine Allergy Unknown Unknown Verified 06/06/20 09:49 Review of Systems Review of Systems: ROS unobtainable: Yes unobtainable due to mental status PMFSH Past Medical History Medical History Arthritis Chronic narcotic use COPD (chronic obstructive pulmonary disease) Diverticulosis Essential hypertension, benign History of peptic ulcer Tobacco abuse Surgical History Surgical History Hx of dilation and curettage 2001 Hx of spinal surgery 2 cervical (front) and 1 cervical posterior 2 lumbar surgeries S/P appy 1955 S/P cholecystectomy 1970 Family History Family History Father Lung cancer Mother Lung cancer Sibling Cancer of brain Sibling Cancer of brain Other Cancer of kidney Cerebrovascular accident Social History Social History Social History: Home with . Worked at [employer]. Hx of tobacco use. Full code. Smokes 3-4 cig/day. No alcohol. would be making medical decision for her if she is not able. Smoking packs per day: 0.25 Smoking cigarettes per day: 5.0 Years smoked: 30 Smoking pack-years: 7.50 Smoking status: Former smoker Tobacco type: cigarettes Second hand tobacco smoke exposure: No Smoking end date: 03/25/20 Alcohol intake: never Substance use: never Gender identity (if verbalized by the patient): Female Spiritual care concerns: No Exam Const: General: confusion Nutritional Appearance: thin HENMT: Head: normal to inspection Mouth: Yes dry mucous membranes Eyes: Other: 3mm and sluggish Neck: Neck: normal visual inspection Resp: Effort & Inspection: normal respiratory effort Auscultation: diminished lung sounds Cardio: Rate: regular rate Rhythm: regular rhythm GI: GI Palp: Yes Soft to palpation and No Tenderness to palpation present (GI) Skin: General skin exam: turgor decreased Neuro: General: oriented to person and oriented to place Cranial nerves: Yes CN's II-XII intact bilaterally Speech: Abnormal speech present slurred Motor exam (neuro): 5/5 motor strength present throughout Course Vital Signs Vital signs: Vital Signs Temperature 36.8 C 07/19/20 18:47 Pulse Rate 91 07/19/20 18:47 Respiratory Rate 12 07/19/20 18:47 Blood Pressure 115/64 07/19/20 18:47 Pulse Oximetry 96 07/19/20 18:47 Temperature 36.8 C 07/19/20 18:47 Pulse Rate 91 07/19/20 18:47 Respiratory Rate 12 07/19/20 18:47 Blood Pressure 115/64 07/19/20 18:47 Pulse Oximetry 96 07/19/20 18:47 MDM - Altered Mental Status Differential Diagnosis Differential diagnosis: Likely delirium, dementia, hypoglycemia and hyponatremia Medical Records Attestation: I reviewed the patient's medical records. Lab Data Attestation: I reviewed the patient's lab results. Result diagrams: 07/19/20 17:
--- NOTE | 2020-07-19 15:16 | ECG_ITS ---
Measurements Intervals [place] Rate: 91 P: 66 LA: 148 QRS: 57 QRSD: 86 T: 60 QT: 342 QTc: 421 Interpretive Statements SINUS RHYTHM BASELINE ARTIFACT- I, AVR, AVL, AVF NORMAL ECG Electronically Signed On 07-19-2020 16:00:14 CDT by Cheng Nazario D.O.
[2020-07-19 15:19] LABS: Glucose Point of Care 150 mg/dl (65-105)
[2020-07-19] MEDS: NALOXONE HCL 0.4 MG/ML VIAL IV PUSH (15:20)
[2020-07-19] MEDS: SODIUM CHLORIDE 0.9% IV 1,000 ML 999 ML IV CONT (15:21)
[2020-07-19 15:51] LABS: Alveolar/Arterial O2 Gradient 124.8 mmHg; Base Excess ABG -1.3 mEq/l (+/-2.0); Fractional Inspired Oxygen 36 %; HCO3 ABG 23.8 mEq/l (22.0-26.0); Oxygen Saturation ABG 96.1 % (95.0-100.0); Oxyhemoglobin 94.2 % THb (90.0-100.0); PCO2 ABG 41.3 mmHg (35.0-45.0); PO2 FiO2 Ratio Arterial Blood 2.33 %; Total Hemoglobin 12.8 g/dL (12.0-18.0); pH ABG 7.378 (7.350-7.450)
[2020-07-19 15:52] LABS: Device NASAL CANNULA; Site Drawn RIGHT BRACHIAL
[2020-07-19 17:24] LABS: Basophils Absolute Auto 0.1 K/mm3 (0.0-0.1); Basophils Percent Auto 1.4 % (0.2-1.2); Eosinophils Absolute Auto 0.1 K/mm3 (0-0.3); Eosinophils Percent Auto 1.2 % (0-4.4); Hematocrit 38.2 % (37.0-47.0); Immature Granulocyte Absolute 0.02 K/mm3 (0.00-0.031); Immature Granulocyte Percent A 0.3 % (0-0.5); Lymphocytes Absolute Auto 0.79 K/mm3 (0.9-3.2); Lymphocytes Percent Auto 10.7 % (18.3-44.2); Mean Corpuscular HGB Conc 31.4 g/dl (32-36); Mean Corpuscular Hemoglobin 30.4 pg (26-34); Mean Corpuscular Volume 96.7 fl (80-100); Mean Platelet Volume 9.3 fl (7.4-10.4); Monocytes Absolute Auto 0.7 K/mm3 (0.1-0.6); Monocytes Percent Auto 9.2 % (2.6-8.5); Neutrophils Absolute Auto 5.7 K/mm3 (1.3-6.7); Neutrophils Percent Auto 77.2 % (45.5-73.1); Platelet Count Result 327 k/mm3 (150-375); Red Blood Count 3.95 M/mm3 (4.2-5.4); Red Cell Distribution Width 14.2 % (11.5-14.5); White Blood Count 7.4 K/mm3 (4.5-10.0)
[2020-07-19 17:34] LABS: Lactic Acid Reflex 0.6 mmol/L (0.7-2.1)
[2020-07-19 17:35] LABS: Alanine Aminotransferase 11 U/L (4-35); Albumin Level 3.3 g/dL (3.5-5.1); Alkaline Phosphatase 107 U/L (38-126); Anion Gap 8 mmol/L (8-16); Aspartate Amino Transferase 18 U/L (14-36); Bilirubin,Total 0.3 mg/dL (0.2-1.3); Blood Urea Nitrogen 41 mg/dL (7-17); Calcium 8.2 mg/dL (8.4-10.2); Carbon Dioxide 22 mmol/L (22-30); Chloride 109 mmol/L (98-107); Estimated CRCL calculation 30 ml/min; Estimated Glomerular Filt Rate > 60; Glucose 104 mg/dL (65-105); Potassium 4.6 mmol/L (3.4-5.0); Sodium 139 mmol/L (137-145)
[2020-07-19 17:36] LABS: Ammonia < 9 umol/L (9-30)
[2020-07-19 18:28] LABS: Add Urine Microscopic? YES; Appearance Urine Cloudy (Clear); Bacteria Urine Trace /hpf; Bilirubin Urine Negative (Negative); Blood Urine Negative (Negative); Color Urine Amber (Yellow); Glucose Urine UA Negative (Negative); Ketones Urine Trace mg/dL (Negative); Leukocyte Esterase Ur 1+ LEU/UL (Negative); Mucus Urine Rare /lpf; Nitrate Urine Negative (Negative); Protein Urine 1+ mg/dL (Negative); Squamous Epithelial Cell Urine Many /hpf (Few); WBC Urine 21-30 /hpf
[2020-07-19 18:32] LABS: INR 1.1; Prothrombin Time 14.4 Seconds (11.1-14.7)
[2020-07-19 18:33] LABS: Partial Thromboplastin Time 27.6 SECONDS (22.3-36.8)
[2020-07-19 18:47] VITALS: BP 115/64; PULSE 91; RESP 12; TEMP 36.8; O2SAT 96
[2020-07-19] MEDS: CIPROFLOXACIN 500 MG TAB PO (19:03)
[2020-07-19 19:07] LABS: Amphetamine Screen Urine Negative (Negative); Barbiturate Screen Urine Negative (Negative); Benzodiazepines Screen Urine Negative (Negative); Cannabinoid Screen Urine Negative (Negative); Cocaine Screen Urine Negative (Negative); Methadone Screen Urine Negative (Negative); Opiate Screen Urine Positive (Negative); Phencyclidine Screen Urine Negative (Negative)
--- NOTE | 2020-07-19 19:36 | PC.NURSE ---
call placed to patient to inform her that her discharge papers were left in the room. advised patient that an rx was called into her pharmacy. patient states she will return to the er for the papers
--- NOTE | 2020-07-22 09:21 | PC.NURSE ---
LATE ENTRY This note is being entered to document information to the patient's record. The following information was omitted on [07/19/2020], by [Gibsno Bustillos RN]. Pt. hypoventilating upon arrival, breathing about 8-10 times a minute, Pt. is on 3L via nasal cannula, patient is confused, and very lethargic. Pt. pupils are constricted. Pt. arousable to voice. Pt. is not normally on oxygen.
== END 2020-07-19 19:06 | disposition home or self-care (01) ==
PROVIDERS: Emergency Provider Emergency Medicine; PCP Family Medicine Adolescent Medicine
DX: N39.0 Urinary tract infection, site not specified (principal); R41.82 Altered mental status, unspecified; I10 Essential (primary) hypertension; G89.29 Other chronic pain; M19.90 Unspecified osteoarthritis, unspecified site; J43.9 Emphysema, unspecified; Z87.891 Personal history of nicotine dependence; Z87.11 Personal history of peptic ulcer disease
CPT/HCPCS: 36415; 36600; 70450; 71045; 80053; 80307; 81001; 82140; 82805; 82948; 83605; 84443; 85025; 85610; 85730; 87077; 87086; 87088; 87186; 93005; 96361; 96374; 99284; A9270; J2310; J7030

== ENCOUNTER 2020-09-11 17:03 | Emergency (ER) | payer MEDICARE, OTHER, SELFPAY ==
[2020-09-11 16:58] VITALS: BP 69/21; TEMP 35.6
--- NOTE | 2020-09-11 17:15 | PC.NURSE ---
Pt time of [address] Baumann at bedside. Pt in asystole in 2 leads. Pt family at bedside. garbage person Pura notified blocker and polisher gold wheel of pt . Dr Baumann notified pts PCP Dr Orozco. This RN notified [facility] and spoke to Brittnee - given .
--- NOTE | 2020-09-11 17:43 | ED.CPR ---
HPI - CPR General Chief Complaint: Cardiac Arrest/CPR Stated Complaint: CARDIAC ARREST Time Seen by Provider: 09/11/20 17:06 Source: EMS Mode of arrival: EMS Limitations: clinical condition History of Present Illness HPI narrative: 75-year-old with multiple medical problems was brought in from home in cardiac arrest. As per the EMS and per the patient has not been doing too well for last 2 days. She has not been eating or drinking. As per the patient was sitting in the recliner she was about to get her milkshake and she collapsed in front of him. He states that he called 911 upon their arrival patient was in asystole CPR was initiated and was later brought to the ER. On route to the hospital patient had episodes of V. V. fib she was given amiodarone and was also shocked times. Upon arrival to the ER patient remains unresponsive and in asystole with no spontaneous respirations. complaint: collapsed during rest Time: 16:30 Timing confirmed by: spouse Place: home Bystander CPR performed: No (Done by fire department) Downtime before ACLS arrival (mins): 10 Initial findings in the field: unresponsive Associated injuries: No Known history of: other (COPD, hypertension) Treatments prior to arrival: intubation Related Data Home Medications Medication Instructions Recorded Confirmed Breo Ellipta 25 inh INHALATION PRN PRN 03/29/20 07/25/20 trazodone 50 mg PO HS 03/29/20 07/25/20 Allergies Allergy/AdvReac Type Severity Reaction Status Date / Time codeine Allergy Unknown Unknown Verified 07/25/20 14:35 Review of Systems Review of Systems: ROS unobtainable: Yes unobtainable due to medical condition PMFSH Past Medical History Medical History Arthritis Chronic narcotic use COPD (chronic obstructive pulmonary disease) Diverticulosis Essential hypertension, benign History of peptic ulcer Tobacco abuse Surgical History Surgical History Hx of dilation and curettage 2001 Hx of spinal surgery 2 cervical (front) and 1 cervical posterior 2 lumbar surgeries S/P appy 195 S/P cholecystectomy 1970 Family History Family History Father Lung cancer Mother Lung cancer Sibling Cancer of brain Sibling Cancer of brain Other Cancer of kidney Cerebrovascular accident Social History Social History Social History: Home with . Worked at [employer]. Hx of tobacco use. Full code. Smokes 3-4 cig/day. No alcohol. would be making medical decision for her if she is not able. Smoking packs per day: 0.25 Smoking cigarettes per day: 5.0 Years smoked: 30 Smoking pack-years: 7.50 Smoking status: Former smoker Tobacco type: cigarettes Second hand tobacco smoke exposure: No Smoking end date: 03/25/20 Alcohol intake: never Substance use: never Gender identity (if verbalized by the patient): Female Spiritual care concerns: No Exam Narrative: GENERAL: Unresponsive , cachectic , Unresponsive HEAD: Normocephalic, atraumatic. EYES: Pupils fixed and dilated. ENT: ET tube in place NECK: Supple. CHEST: Bilateral breath sounds with BMV HEART: Asystole ABDOMEN: Soft. SKIN: Warm, dry . NEURO: Unresponsive Course Course Emergency Course: Per arrival to the ER patient remained asystole 1 amp of epinephrine and CPR was continued. Patient did not respond to any treatment. Patient had at least 4 rounds of epi on route to the hospital. She was also shocked twice. CPR was called off at 1705. I discussed and was and we are aware of the situation. I did inform Dr. Orozco will sign certificate. Discharge Plan Discharge Clinical Impression: Cardiac arrest Patient Disposition: Condition: Prescriptions: No Action Breo
--- NOTE | 2020-09-11 18:20 | PC.NURSE ---
Per Ruthie at [facility], the pt is not a candidate for organ donation. EDP and Charge made aware.
--- NOTE | 2020-09-11 19:32 | PC.NURSE ---
Spoke with Antonio at [facility] [place]. All questions answered at this time. home states they will be on their way to retrieve the . [facility] phone number [phone].
== END 2020-09-11 19:25 | disposition expired ==
PROVIDERS: Emergency Provider Family Medicine; PCP Family Medicine Adolescent Medicine
DX: I46.9 Cardiac arrest, cause unspecified (principal); Z87.891 Personal history of nicotine dependence; M19.90 Unspecified osteoarthritis, unspecified site; J44.9 Chronic obstructive pulmonary disease, unspecified; K57.90 Diverticulosis of intestine, part unspecified, without perforation or abscess without bleeding; I10 Essential (primary) hypertension
CPT/HCPCS: 92950; 99285; J0171